=== PATIENT | male | born 1965 | race Caucasian/White ===

== ENCOUNTER 2016-12-04 18:11 | Inpatient (IN) | payer OTHER ==
[~2016-12-04] VITALS: Ht 177.8 cm; Wt 117.9 kg
[~2016-12-04 18:11] MED LIST: METO25TA PO
[2016-12-04 18:29] VITALS: BP 143/85
--- NOTE | 2016-12-04 18:29 | NUR ---
PT W/C ASSISTED TO BED 4 AT THIS TIME.
[2016-12-04] MEDS ORDERED: methylPREDNISolone SS 125 MG in WATER STERILE 2 ML IV ONE (18:30)
[2016-12-04] MEDS ORDERED: ALBUTEROL SULFATE/IPRATROPIU 3 ML SOL IH ONE (18:30)
--- NOTE | 2016-12-04 18:30 | NUR ---
51M BIB FRIEND C/O SHORTNESS OF BREATH X TODAY; BL LUNG SOUNDS DIMINISHED, LABORED BREATHING, TACHYPNEA NOTED ON MONITOR AT THIS TIME; PT STATES HAS PRODUCTIVE COUGH W/ YELLOW PHLEGM X 2 DAYS; HX: ASTHMA/COPD; PT STATES DOES NOT TAKE BREATHING TX AT HOME; PT STATES "LOST BALANCE" AND FELL ON RT ARM AT HOME; RT RADIAL PULSE PALPABLE, CAP REFILL < 3 SECS, NO LOSS OF SENSATION TO RT ARM AT THIS TIME; PT C/O ACHING PAIN TO RT ARM, RADIATES TO RT FINGERS, MILD SWELLING NOTED TO HAND AT THIS TIME; PT DENIES LOC AT THIS TIME; PT DENIES N/V/D AT THIS TIME; PT PLACED ON MONITOR, RESTING IN BED W/ HOB ELEVATED AND IN LOWEST POSITION; POSITIONED FOR COMFORT; ER MD MADE AWARE OF STATUS. WILL CONTINUE TO MONITOR.
--- NOTE | 2016-12-04 18:32 | NUR ---
Dr. Jackson evaluating patient at bedside.
--- NOTE | 2016-12-04 18:40 | NUR ---
RT at bedside
[2016-12-04 19:08] LABS: BASOPHILS # (AUTO) 0.3 K/uL (0.00-0.22); BASOPHILS % (AUTO) 2.1 % (0.0-2.0); EOSINOPHILS # (AUTO) 0.3 K/uL (0-0.4); EOSINOPHILS % (AUTO) 2.2 % (0.0-4.0); HEMOGLOBIN 13.5 g/dL (12.0-18.0); LYMPHOCYTES # (AUTO) 7.2 K/uL (2.0-11.5); LYMPHOCYTES % (AUTO) 49.9 % (20.5-51.1); MEAN CORPUSCULAR HEMOGLOBIN 27 pg (27-31); MEAN CORPUSCULAR HGB CONC 32 g/dL (33-37); MEAN CORPUSCULAR VOLUME 85 fL (80-94); MONOCYTES # (AUTO) 0.9 K/uL (0.8-1.0); NEUTROPHILS # (AUTO) 5.7 K/uL (1.8-7.7); NEUTROPHILS % (AUTO) 39.8 % (42.2-75.2); PLATELET COUNT (AUTO) 181 K/uL (140-450); RED BLOOD CELL COUNT(AUTO) 4.92 MIL/uL (4.20-6.10); RED CELL DISTRIBUTION WIDTH 14.4 % (11.6-13.7); WHITE BLOOD COUNT (AUTO) 14.4 K/uL (4.8-10.8)
--- NOTE | 2016-12-04 19:08 | NUR ---
REPORT GIVEN TO AUSTYN CARO.
--- NOTE | 2016-12-04 19:10 | NUR ---
REPORT RECEIVED FROM AUSTYN ESPITIA.
[2016-12-04 19:15] LABS: INR 1.1 (0.8-1.2); PROTHROMBIN TIME 10.4 secs (10.8-13.4)
[2016-12-04 19:17] LABS: BLOOD GAS HCO3 29.1 mmol/L; BLOOD GAS PCO2 50.4 mmHg (20-50); BLOOD GAS PO2 98.6 mmHg
[2016-12-04 19:17] LABS: ALBUMIN 3.6 g/dL (3.4-5.0); ANION GAP 7.7 (8-16); CALCIUM 8.4 mg/dL (8.5-10.1); CARBON DIOXIDE 32.3 mmol/L (21-32); TOTAL BILIRUBIN 0.4 mg/dL (0.0-1.0); TOTAL PROTEIN, SERUM 6.9 g/dL (6.4-8.2)
[2016-12-04 19:18] LABS: BLOOD GAS O2 SAT% 97.4 % (92.0-98.5)
--- NOTE | 2016-12-04 20:13 | NUR ---
Patient appears to be resting comfortably in bed. pt asleep
[2016-12-04] MEDS ORDERED: HYDROcodone/APAP 5/325 MG 1 TAB TAB PO PRN (20:30)
[2016-12-04] MEDS ORDERED: LORazepam 2 MG/ML VIAL IVP PRN (20:30)
[2016-12-04] MEDS ORDERED: ONDANSETRON 4 MG/2 ML VIAL IVP PRN (20:30)
[2016-12-04] MEDS ORDERED: MORPHINE SULFATE 2 MG/ML SYR IVP PRN (20:30)
[2016-12-04] MEDS ORDERED: ACETAMINOPHEN 325 MG TAB PO PRN (20:30)
[2016-12-04] MEDS ORDERED: NACL 0.9% 1,000 ML IV SCH (20:30)
--- NOTE | 2016-12-04 20:35 | NUR ---
Patient will be admitted to care of DR DELGADO. Admited to TELE. Will go to room 106 b. Belongings list completed. Report to hiram kessler.
--- NOTE | 2016-12-04 20:35 | NUR ---
Admitted from E.. with chief complaint of SHORTNESS OF BREATH. A 51 y/o. Male, Appropriate. ALERT AWAKE ORIENTED X4. INITIAL ASSESSMENT DONE. NO S/S OF RESPIRATORY DISTRESS OR SOB NOTED. ON BI-PAP MACHINE AND TOLERATED WELL. NO C/O PAIN OR ANY DISCOMFORT AT THIS TIME. SKIN IS INTACT CLEAN DRY AND WARM TO TOUCH. PLAN OF CARE REVIEWED TO PT AND VERBALIZED UNDERSTANDING. oriented to call light, bed, phone,television, bathroom, smoking policy, visiting hours, procedures, ID bracelet on. Belongings list checked. CALL LIGHT WITHIN REACH. WILL CONTINUE TO MONITOR.
--- NOTE | 2016-12-04 20:45 | NUR ---
SPOKE TO DR. GARZA AND CLARIFIED RE: THE RATE OF IV FLUID NS @ 80ML/HR AND THE FREQUENCY OF LOPRESSOR AND IT IS BID. NOTED AND CARRIED OUT. WILL CONTINUE TO MONITOR.
[2016-12-04] MEDS: AZITHROMYCIN 500 MG in DEXTROSE 5% 250 ML IV SCH (20:47)
[2016-12-04] MEDS ORDERED: AZITHROMYCIN 500 MG INJ VIAL IV ONE (20:50)
[2016-12-04] MEDS: METOPROLOL 25 MG TAB PO SCH (21:03)
[2016-12-04] MEDS ORDERED: ASPIRIN 81 MG TAB.CHEW PO STA (21:15)
[2016-12-04] MEDS ORDERED: NITROGLYCERIN 0.4 MG/HR PATCH TD STA (21:15)
[2016-12-04] MEDS ORDERED: ENOXAPARIN 40 MG/0.4 ML SYR SUBQ STA (21:15)
--- NOTE | 2016-12-04 23:20 | NUR ---
PT IS OFF FROM BI-PAP MACHINE BECAUSE HE IS REFUSING IT DESPITE EXPLAINING THE RISKS AND BENEFITS OF IT. PT STATES THAT IT IS BOTHERING HIM AND HE IS BREATHING WELL WITHOUT IT. RT BRENDA NOTIFIED AND PUT PT ON O2 @ 3L/MIN VIA NASAL CANULA AND TOLERATED WELL. O2SAT IS 97% AT THIS TIME. WILL CONTINUE TO MONITOR.
[2016-12-04] MEDS: methylPREDNISolone SS 125 MG/2 ML VIAL IVP SCH (23:51)
[2016-12-05] VITALS: BP 133/79
--- NOTE | 2016-12-05 01:00 | NUR ---
PT IS SLEEPING RIGHT NOW BUT EASILY AROUSABLE. NO S/S OF ANY DISCOMFORT AT THIS TIME. ALL NEEDS ARE ATTENDED. CALL LIGHT WITHIN REACH. WILL CONTINUE TO MONITOR.
[2016-12-05 03:09] LABS: CREATINE KINASE MB 2.4 ng/mL (0-3.6)
[2016-12-05 04:00] VITALS: BP 127/76
[2016-12-05] MEDS: methylPREDNISolone SS 125 MG/2 ML VIAL IVP SCH ×3 (05:26→18:24)
--- NOTE | 2016-12-05 05:45 | NUR ---
AM CARE RENDERED. BED LINEN CHANGED. INSTRUCTED PT TO REPOSITION. KEPT CLEAN AND DRY. CALL LIGHT WITHIN REACH. WILL CONTINUE TO MONITOR.
[2016-12-05 07:01] LABS: BASOPHILS # (AUTO) 0.2 K/uL (0.00-0.22); BASOPHILS % (AUTO) 1.8 % (0.0-2.0); EOSINOPHILS # (AUTO) 0.2 K/uL (0-0.4); EOSINOPHILS % (AUTO) 1.7 % (0.0-4.0); HEMATOCRIT 42.4 % (36-52); HEMOGLOBIN 13.9 g/dL (12.0-18.0); LYMPHOCYTES # (AUTO) 2.9 K/uL (2.0-11.5); LYMPHOCYTES % (AUTO) 25.1 % (20.5-51.1); MEAN CORPUSCULAR HEMOGLOBIN 28 pg (27-31); MEAN CORPUSCULAR HGB CONC 33 g/dL (33-37); MEAN CORPUSCULAR VOLUME 86 fL (80-94); MONOCYTES # (AUTO) 0.1 K/uL (0.8-1.0); MONOCYTES % (AUTO) 1.1 % (1.7-9.3); NEUTROPHILS # (AUTO) 8.3 K/uL (1.8-7.7); NEUTROPHILS % (AUTO) 70.3 % (42.2-75.2); PLATELET COUNT (AUTO) 179 K/uL (140-450); RED BLOOD CELL COUNT(AUTO) 4.94 MIL/uL (4.20-6.10); RED CELL DISTRIBUTION WIDTH 14.6 % (11.6-13.7); WHITE BLOOD COUNT (AUTO) 11.7 K/uL (4.8-10.8)
[2016-12-05 07:06] LABS: ANION GAP 8.3 (8-16); CALCIUM 8.1 mg/dL (8.5-10.1); CARBON DIOXIDE 30.1 mmol/L (21-32); CREATININE 0.7 mg/dL (0.6-1.3); POTASSIUM 4.4 mmol/L (3.5-5.1)
--- NOTE | 2016-12-05 07:12 | NUR ---
PT HAS NO S/S OF ANY DISCOMFORT. PLAN OF CARE ENDORSED TO NORMA ZAMAN AT BEDSIDE FOR CONTINUITY OF CARE.
--- NOTE | 2016-12-05 07:30 | NUR ---
PT AWAKE, ALERT AND ORIENTED. ON O2 NC 3L/MIN, O2 SAT 96%. NO S/S OF RESPIRATORY DISTRESS AT THIS TIME. ABDOMEN EXTENDED,SOFT. IV TO LEFT AC RUNNING 0.9% NS AT 80 ML/HR. SITE INTACT AND PATENT. SKIN INTACT, PT CAN MOVE ALL HER EXTREMITIES. ASSISTED PT TO USE URINAL, PT HAD 200 ML CLEAR YELLOW URINE. POC DISCUSSED WITH PT, PT VERBALIZED UNDERSTANDING. CALL LIGHT IN REACH, HOB ELEVATED AT 30 DEGREES.WILL CONTINUE TO MONITOR.
--- NOTE | 2016-12-05 07:47 | NUR ---
PT PLACED ON BIPAP AT THIS TIME DUE TO LABORED BREATHING. PT TOLERATING WELL AT THIS TIME. BIPAP SETTINGS 16/8, R 14, FIO2 35%. BIPAP ALARMS ON AND FUNCTIONING. WILL CONTINUE TO MONITOR.
--- NOTE | 2016-12-05 07:56 | NUR ---
PATIENT HAS BEEN SCREENED AND CATEGORIZED MODERATE NUTRITION RISK. PATIENT WILL BE SEEN WITHIN 3-5 DAYS OF ADMISSION. 12/07/16-12/09/[address]
[2016-12-05 08:00] VITALS: BP 124/69
[2016-12-05] MEDS ORDERED: MORPHINE SULFATE 2 MG/ML SYR IVP PRN (09:25)
[2016-12-05] MEDS ORDERED: HYDROcodone/APAP 10/325 MG 1 TAB TAB PO PRN (09:25)
[2016-12-05] MEDS ORDERED: guaiFENesin 20 MG/ML UDC PO PRN (09:25)
[2016-12-05] MEDS: METOPROLOL 25 MG TAB PO SCH ×2 (09:30→20:31)
[2016-12-05] MEDS: ASPIRIN 81 MG TAB.CHEW PO SCH (09:30)
[2016-12-05] MEDS: ENOXAPARIN 40 MG/0.4 ML SYR SUBQ SCH (09:31)
--- NOTE | 2016-12-05 09:44 | NUR ---
PT TAKEN OFF OF BIPAP FOR PO MEDS AND PT WANTS TO EAT. PT PLACED ON 3L NASAL CANNULA SPO2 95%. PT NOT SOB AND NOT IN RESPIRATORY DISTRESS. PT BECOMES TACHYPNEIC WHEN IN UNCOMFORTABLE POSITION OR WHEN MOVING AROUND IN BED. NURSE WAS BEDSIDE AND AWARE OF PT STATUS.
--- NOTE | 2016-12-05 10:00 | NUR ---
PT AWAKE, ALERT, AND ORIENTED. NO S/S OF RESPIRATORY DISTRESS NOTED.
[2016-12-05 10:55] LABS: CREATINE KINASE MB 1.8 ng/mL (0-3.6)
--- NOTE | 2016-12-05 11:09 | NUR ---
FAXED INITIAL REVIEW TO [facility] [phone] PHONE CHET [phone]
[2016-12-05] MEDS: ALBUTEROL 0.083% 2.5 MG/3 ML NEBU INH PRN ×2 (11:29→19:03)
[2016-12-05] MEDS: IPRATROPIUM 0.02% 0.5 MG/2.5 ML NEBU INH SCH ×2 (11:29→19:02)
[2016-12-05 12:00] VITALS: BP 139/97
--- NOTE | 2016-12-05 12:10 | NUR ---
PT FORGOT NPO AND ATE. DR. LAZO AWARE.
--- NOTE | 2016-12-05 14:45 | NUR ---
PT RESTING IN BED.NO S/S OF RESPIRATORY DISTRESS NOTED. DENIES PAIN OR DISCOMFORT AT THIS TIME. CALL LIGHT IN REACH.
[2016-12-05 16:00] VITALS: BP 130/69
--- NOTE | 2016-12-05 16:00 | NUR ---
RECEIVED REPORT FROM, SUNDAY RN. PT IS AAOX4, PT IS ON O2 3L VIA NC, PULSE OX 96%, IV TO LEFT AC 20G INFUSING WELL. REVIEWED PLAN OF CARE WITH PT PT VERBALIZED UNDERSTANDING. ALL NEEDS MET. CALL LIGHT WITHIN REACH. WILL CONTINUE TO MONITOR. Addendum: 12/05/16 at 1815 by Reena Lion RN PT SALINE LOCK, IV TO LEFT AC 20G PATENT AND INTACT.
--- NOTE | 2016-12-05 18:29 | NUR ---
DUE MEDICATIONS GIVEN. PT TOLERATED WELL . PT C/O OF PAIN RIGHT HAND, MEDICATED PER MD ORDERS. CALL LIGHT WITH REACH. WILL CONTINUE TO MONITOR.
--- NOTE | 2016-12-05 19:02 | NUR ---
AWAKE AND ALERT RESPONSIVE OBESE IN HFW POSITION ON SUPPLEMENTAL OXYGEN AT 3 LPM VIA NC SATURATION 95% RR 24 HR 94 PATIENT C/O SOB HHN THERAPY GIVEN AT THIS TIME TOLERATED WELL WITHOUT INCIDENT [facility] [employer]P[facility]ONICS V60 BIPAP AT BEDSIDE
[2016-12-05] MEDS: BUDESONIDE 0.5 MG/2 ML NEBU INH SCH (19:03)
--- NOTE | 2016-12-05 19:05 | NUR ---
RESPIRATORY THERAPIST KERA IN ROOM WITH THE PATIENT,PT IS CURRENTLY AWAKE ALERT O2SAT 94% PT DENIES PAIN,IV SITE TO LT AC PATENT.PATIENT ABLE TO MAKE NEEDS KNOWN. PATIENT IS CURRENTLY USING THE URINAL. PATIENT WILL CONTINUE TO BE OBSERVED. CALL LIGHT WITHIN REACH WILL CONTINUE TO MONITOR.FALL AND SAFETY MEASURES IMPLEMENTED.
--- NOTE | 2016-12-05 19:05 | NUR ---
ENDORSED PLAN OF CARE TO NIGHT NURSE, PT IN STABLE CONDITION, RT CURRENTLY IN ROOM.
[2016-12-05 20:00] VITALS: BP 121/79
--- NOTE | 2016-12-05 20:00 | NUR ---
Patient's Plan of Care was discussed and reviewed with REPOSSESSOR: CHUN.
[2016-12-05] MEDS: AZITHROMYCIN 500 MG in DEXTROSE 5% 250 ML IV SCH (20:24)
--- NOTE | 2016-12-05 20:24 | NUR ---
PT RECEIVED HIS ANTIBIOTIC BY AUSTYN VAIL.PT WAS JUST FINISHED TALKING TO HIS DAUGHTER SOFY OVER THE PHONE. O2SAT 94%.WILL CONTINUE TO MONITOR.CALL LIGHT WITHIN REACH.
--- NOTE | 2016-12-05 20:31 | NUR ---
PATIENT TOOK HIS ROUTINE NIGHT TIME MEDICATIONS.PATIENT DOING WELL.CALL LIGHT WITHIN REACH.
--- NOTE | 2016-12-05 22:40 | NUR ---
PATIENT STATES HE FEELS LIKE HAVING A BOWEL MOVEMENT AND WANTS TO WALK TO THE BATHROOM,I OFFERED BEDPAN PT REFUSED,THEN I OFFERED A BEDSIDE COMMODE PT AGREED AND I PROVIDED HIM WITH A BEDSIDE COMMODE AND ASSISTED THE PATIENT TO THE BEDSIDE COMMODE EARLIER PT STATES,"ITS VERY UNCOMFORTABLE AND ONLY VOIDED PT STATES,"NO I WILL TRY AGAIN LATER." PATIENT WAS ASSISTED BACK TO BED INSTEAD.O2SAT'S DURING THE TIME HE WAS USING THE BEDSIDE COMMODE WERE 92-94% AND PATIENT HAS HIS OXYGEN AT 3LITERS ALL THE TIME AND CONTINUES TO HAVE IT IN PLACE.CALL LIGHT WITHIN REACH.
--- NOTE | 2016-12-05 22:45 | NUR ---
RESPIRATORY THERAPIST KERA WAS INFORMED THAT WHEN I OBSERVED THE PATIENT SLEEPING HIS O2SAT DROPPED TO 79% I AROSE THE PATIENT AND HIS O2SAT WENT UP AGAIN TO 93%.I TOLD THE PATIENT THAT ITS IMPORTANT AND THAT HE NEEDS TO BE ON THE BIPAP MACHINE BECAUSE DURING HIS SLEEP HIS O2SAT DROPS, PT AGREED.RESPIRATORY THERAPIST KERA WAS INFORMED HE WILL COME AND PUT HIM ON THE BIPAP.WILL CONTINUE TO MONITOR.
--- NOTE | 2016-12-05 23:05 | NUR ---
PT COMPLAINS OF PAIN TO HIS IV SITE RT AC G#20 IT WAS REMOVED AND A NEW IV LINE WAS RESTARTED TO HIS LT HAND G#22 AT FIRST ATTEMPT WITH GOOD BLOOD RETURN.WILL CONTINUE TO MONITOR.
--- NOTE | 2016-12-05 23:15 | NUR ---
TOLERATING BIPAP TO MASK WELL WITHOUT INCIDENT PLUGGED INTO RED OUTLET CONTINUOS PULSE OXIMETRY AT BEDSIDE ON AND FUNCTIONING WELL LOW SATURATION ALARM SET AT 90%
--- NOTE | 2016-12-05 23:46 | NUR ---
PT UPSET REFUSES THE BIPAP PT STATES,"I FEEL LIKE I CAN'T BREATH AND I CANNOT SLEEP." PATIENT CONTINUES TO HAVE PULSE OXIMETER IN PLACE 02SAT READING IS 99-98%.PATIENT INSISTS THAT HE WANTS BIPAP OFF.I CALLED AND INFORMED RESP THERAPIST KERA.
--- NOTE | 2016-12-05 23:49 | NUR ---
AWAKE AND ALERT OBESE PATIENT REFUSING BIPAP TO MASK PLACED BACK ON SUPPLEMENTAL OXYGEN AT 3 LPM VIA SUNDAY MCCOLLUM/RN NOTIFIED
[2016-12-06 00:12] VITALS: BP 131/70
[2016-12-06] MEDS: methylPREDNISolone SS 125 MG/2 ML VIAL IVP SCH ×4 (00:37→20:40)
--- NOTE | 2016-12-06 00:59 | NUR ---
PATIENT IS CURRENTLY SLEEPING IN NO DISTRESS PATIENT CONTINUES TO BE MONITORED.CALL LIGHT WITHIN REACH.
[2016-12-06] MEDS: IPRATROPIUM 0.02% 0.5 MG/2.5 ML NEBU INH SCH ×4 (02:15→19:16)
--- NOTE | 2016-12-06 03:15 | NUR ---
PATIENT CALLED AND I WENT TO CHECK UP ON HIM PT IS RESTING IN BED AND HE HAD HIS OXYGEN OUT OF PLACE PT CONTINUES TO HAVE THE CONTINUES O2SAT MACHINE AT BEDSIDE AND HIS CURRENT READING 02SAT 91%.PT STATES HE URINATED ON THE FLOOR.I PLACED HIS OXYGEN NASAL CANNULA BACK IN PLACE AND O2SAT IS 94% AND I TOLD MT LIN TO CALL EVS TO MOP THE FLOOR.PT HAD HIS CALL LIGHT WITHIN REACH. I EXPLAINED TO THE PATIENT THAT HE NEEDS TO USE THE CALL LIGHT FOR ASSISTANCE AT ALL TIMES.PT VERBALIZES UNDERSTANDING.PATIENT STATES,"HE HAS PERIODS OF ANXIETY."WILL CONTINUE TO OBSERVE THE PATIENT.
[2016-12-06 04:00] VITALS: BP 123/82
--- NOTE | 2016-12-06 04:05 | NUR ---
PT RESTING COMFORTABLY IN BED WILL CONTINUE TO MONITOR.PT IN NO DISTRESS.
--- NOTE | 2016-12-06 06:31 | NUR ---
PATIENT RESTING IN BED O2SAT 97% CONTINUES TO HAVE OXYGEN AT 3L VIA NASAL CANNULA.PATIENT CONTINUES TO BE OBSERVED.CALL LIGHT WITHIN REACH WILL CONTINUE TO MONITOR.
[2016-12-06 06:39] LABS: AMPHETAMINE, URINE NEG. ng/ml (NEG <=1000); BARBITURATE, URINE NEG. ng/ml (NEG <=200); BENZODIAZEPINE, URINE NEG. ng/mL (NEG <=200); CANNABINOID, URINE NEG. ng/mL (NEG <=50); COCAINE, URINE NEG. ng/mL (NEG <=300); OPIATE, URINE NEG. ng/mL (NEG <=2000); PHENCYCLIDINE SCREEN,URINE NEG. ng/mL (NEG <=25)
--- NOTE | 2016-12-06 07:10 | NUR ---
RECEIVED REPORT FROM THE R[employer]ER [employer] NURSE AT BEDSIDE FOR CONTINUITY OF CARE. PT IS AWAKE. SIDE LYING ON HIS LT SIDE. HE DIDN'T EVEN LOOK UP. I INTRODUCED MYSELF AND TOLE HIM I WILL BE BACK TO ASSESS HIM. HE SAID FINE. STILL NO EYE CONTACT. BIPAP MACHINE AT BEDSIDE. PER R[employer] NURSE, PT REFUSED TO USE IT LAST NIGHT. HE HAS A NC 2L O2 RUNNING. NOTED TO IV ON THE L HAND 22G. WILL COME BACK TO FURTHER ASSESS PT.
--- NOTE | 2016-12-06 07:28 | NUR ---
PT STABLE REPORT ENDORSED TO AUSTYN MARSH AT BEDSIDE SHE WILL RESUME CARE.
--- NOTE | 2016-12-06 07:42 | NUR ---
PT EATING AT THIS TIME AND DOES NOT WANT BREATHING TX, WILL CHECK BACK AFTER DONE WITH BREAKFAST FOR TX. PT SITTING UP IN BED NO DISTRESS NOTED.
[2016-12-06 08:00] VITALS: BP 118/64
[2016-12-06] MEDS: BUDESONIDE 0.5 MG/2 ML NEBU INH SCH ×2 (08:17→19:16)
--- NOTE | 2016-12-06 08:30 | NUR ---
PT'S MOM CALLED TO GET F/U ON PT. GAVE HER INFORMATION AFTER ASKING PT IF IT WAS OK. PT VERBALIZED OK.
[2016-12-06] MEDS: METOPROLOL 25 MG TAB PO SCH ×2 (08:38→21:55)
[2016-12-06] MEDS: ASPIRIN 81 MG TAB.CHEW PO SCH (08:38)
[2016-12-06] MEDS: ENOXAPARIN 40 MG/0.4 ML SYR SUBQ SCH (08:38)
[2016-12-06] MEDS: ATORVASTATIN 20 MG TAB PO SCH (08:38)
--- NOTE | 2016-12-06 08:40 | NUR ---
ADMINISTERED MORNING MEDS. PT TOLERATED WELL. WILL CONTINUE TO MONITOR PT.
--- NOTE | 2016-12-06 09:00 | NUR ---
DR. DELGADO WAS HERE. ORDERED CT OF ABD/PEL WITH CONTRAST. GOT CONSENT FROM PT. WILL WAIT A FEW HOURS FOR THE CT D/T PT HAVING HAD BREAKFAST. WILL NEED A SIGNATURE FROM . WILL HAVE HERE PAGED.
[2016-12-06 09:06] LABS: HEMATOCRIT 41.2 % (36-52); HEMOGLOBIN 13.5 g/dL (12.0-18.0); MEAN CORPUSCULAR HEMOGLOBIN 28 pg (27-31); MEAN CORPUSCULAR HGB CONC 33 g/dL (33-37); MEAN CORPUSCULAR VOLUME 85 fL (80-94); PLATELET COUNT (AUTO) 194 K/uL (140-450); RED BLOOD CELL COUNT(AUTO) 4.88 MIL/uL (4.20-6.10); RED CELL DISTRIBUTION WIDTH 14.8 % (11.6-13.7)
[2016-12-06 09:21] LABS: ANION GAP 7.4 (8-16); CALCIUM 8.2 mg/dL (8.5-10.1); CARBON DIOXIDE 32.8 mmol/L (21-32); CREATININE 0.9 mg/dL (0.6-1.3); POTASSIUM 4.2 mmol/L (3.5-5.1)
[2016-12-06 09:26] LABS: BAND % (MANUAL) 0 % (0-8); BASOPHILS % (MANUAL) 0 % (0-2); EOSINOPHILS % (MANUAL) 0 % (0-4); LYMPHOCYTES % (MANUAL) 16 % (20-46); MONOCYTES % (MANUAL) 2 % (5-12); NEUTROPHILS % (MANUAL) 82 (43-65); PLATELET ESTIMATE ADEQUATE
--- NOTE | 2016-12-06 10:40 | NUR ---
MOTHER CALLED FROM [place]. UNABLE TO GET PATCHED THROUGH TO THE ROOM. I WILL SEE. THE RINGER WAS OFF. PT SPEAKING TO MOTHER. PT IS LESS SOB. PT SITTING UP IN HIGH FOWLERS. WILL CONTINUE TO MONITOR PT.
--- NOTE | 2016-12-06 12:00 | NUR ---
NEEDED TO USE THE BATHROOM. ASKED HIM TO USE THE COMMODE. I DIDN'T WANT HIM TO AMBULATE AND FALL. HE GETS REAL SOB. HE DID NOT HAVE A BM. HE IS BACK IN BED. WILL CONTINUE TO MONITOR PT.
--- NOTE | 2016-12-06 13:00 | NUR ---
PT IS IN HIGH ALBERT'S IN BED. FINISHED 100% OF LUNCH. PT IS RESTING AND WATCHING TV. ADMINISTERED HIS MEDS. PT TOLERATED WELL. NO COMPLAINTS AT THIS TIME. WILL CONTINUE TO MONITOR PT. ADVISED HIM R.T. WILL BE HERE SOON FOR HIS BREATHING TX.
--- NOTE | 2016-12-06 15:26 | NUR ---
PT RESTING COMFORTABLY. WATCHING TV. EXPLAINED TO THE PT THAT WE ARE WAITING FOR A SIGNATURE FROM MD FOR THE CT. ONCE SHE GETS HERE, WE WILL CALL RADIOLOGY TO TAKE HIM TO HAVE THE CT DONE. WE WILL HOLD HIS DINNER TRAY FOR WHEN HE RETURNS. PT VERBALIZED UNDERSTANDING. NO COMPLAINTS AT THIS TIME. WILL CONTINUE TO MONITOR PT.
[2016-12-06 15:54] VITALS: BP 131/86
--- NOTE | 2016-12-06 16:00 | NUR ---
RADIOLOGY WAS HERE AND TOOK PT FOR CT OF ABD/PELVIS W/O CONTRAST. Addendum: 12/06/16 at 1925 by Gabrielle Austin RN 1830 NOT 1630
--- NOTE | 2016-12-06 17:00 | NUR ---
PAGED DR. DELGADO AGAIN TO SEE IF SHE IS COMING TO SIGN THE CONSENT. SHE DID NOT KNOW SHE NEEDED TO SIGN. SHE IS NOT PLANNING ON COMING BY TO SIGN THE CONSENT SO CHANGE THE ORDER TO W/OUT CONTRAST. I CHANGED THE ORDER IN THE COMPUTER ON BEHALF OF DR. DELGADO. CALLED RADIOLOGY OF THE CHANGES. MATT, THE GENERAL FARMWORKER, WILL BE HERE SHORTLY TO TAKE PT TO HAVE CT DONE. NOTIFIED PT OF CHANGES. PT VERBALIZED UNDERSTANDING.
--- NOTE | 2016-12-06 19:00 | NUR ---
ENDORSED PT TO THE HEALTH ECONOMIST NURSE AT BEDSIDE FOR CONTINUITY OF CARE. PT IS RESTING, WITHOUT HIS NC ON. PUT ON THE NC O2 AT 3L. PUT HIM BACK ON THE O2 SAT MONITOR. PT IS IN STABLE CONDITION.
--- NOTE | 2016-12-06 19:05 | NUR ---
PT IS AWAKE ALERT ORIENTED HOB ELEVATED TO SITTING POSITION,DENIES ANY CHEST PAIN,GET SOB WITH ACTIVITY AND MOVEMENT,CONTINUES TO HAVE OXYGEN AT 3LITERS VIA NASAL CANNULA 02SAT IS 98% CONTINUES TO BE CONNECTED TO THE CONTINOUS PULSE OXIMETER.CALL LIGHT WITHIN REACH AT ALL TIMES PATIENT ABLE TO MAKE NEEDS KNOWN WILL CONTINUE TO MONITOR.PT STABLE WATCHING TV.
[2016-12-06] MEDS: ALBUTEROL 0.083% 2.5 MG/3 ML NEBU INH PRN (19:16)
--- NOTE | 2016-12-06 19:16 | NUR ---
PT RECEIVING HIS BREATHING TREATMENT AT THIS TIME BY RESPIRATORY THERAPIST
--- NOTE | 2016-12-06 19:35 | NUR ---
PT REFUSING TO USE BIPAP, EXPLAINED BENEFITS OF BIPAP TO PT. PT STATES HE WILL CALL IF HE WANTS IT ON, INFORMED PT'S RN, CHUN OF PT REFUSAL.
--- NOTE | 2016-12-06 19:53 | NUR ---
MD DELGADO CAME BACK AND IS AWARE OF PATIENT CURRENTLY CONDITION AND MADE ROUNDS.
--- NOTE | 2016-12-06 19:54 | NUR ---
PT STABLE WATCHING TV WAS GIVEN SOME SNACKS.
[2016-12-06] MEDS: AZITHROMYCIN 500 MG in DEXTROSE 5% 250 ML IV SCH (20:40)
--- NOTE | 2016-12-06 20:40 | NUR ---
PATIENT IS RECEIVING HIS ANTIBIOTIC GIVEN BY AUSTYN PAULSON.
--- NOTE | 2016-12-06 21:55 | NUR ---
PATIENT WATCHING TV TOOK HIS ROUTINE MEDS CONTINUES TO HAVE OXYGEN AT 3L VIA NASAL CANNULA AND 02SAT IS 96% WILL CONTINUE TO MONITOR.
--- NOTE | 2016-12-06 22:16 | NUR ---
Patient's Plan of Care was discussed and reviewed with BREAD AND PASTRY BAKER: CHUN GARCIA
--- NOTE | 2016-12-07 00:10 | NUR ---
PATIENT IS CURRENTLY RESTING IN BED NEEDS MET STABLE AT THIS TIME.CONTINUE TO BE MONITORED.
[2016-12-07 00:44] VITALS: BP 136/89
[2016-12-07] MEDS: ALBUTEROL 0.083% 2.5 MG/3 ML NEBU INH PRN ×4 (00:58→19:06)
[2016-12-07] MEDS: IPRATROPIUM 0.02% 0.5 MG/2.5 ML NEBU INH SCH ×4 (00:58→19:06)
--- NOTE | 2016-12-07 03:20 | NUR ---
PT IS SLEEPING IN BED,02SAT 94% PT REFUSED BIPAP TONIGHT PT STATES,"I WILL LET YOU KNOW IF I NEED IT."PT CONTINUES TO BE MONITORED.CALL LIGHT WITHIN REACH.
[2016-12-07] MEDS: methylPREDNISolone SS 125 MG/2 ML VIAL IVP SCH ×3 (04:32→20:25)
[2016-12-07 04:35] VITALS: BP 134/80
[2016-12-07 06:01] LABS: HEMATOCRIT 40.3 % (36-52); HEMOGLOBIN 13.4 g/dL (12.0-18.0); MEAN CORPUSCULAR HEMOGLOBIN 28 pg (27-31); MEAN CORPUSCULAR HGB CONC 33 g/dL (33-37); MEAN CORPUSCULAR VOLUME 85 fL (80-94); PLATELET COUNT (AUTO) 201 K/uL (140-450); RED BLOOD CELL COUNT(AUTO) 4.76 MIL/uL (4.20-6.10); RED CELL DISTRIBUTION WIDTH 14.5 % (11.6-13.7); WHITE BLOOD COUNT (AUTO) 20.3 K/uL (4.8-10.8)
[2016-12-07 06:13] LABS: CALCIUM 8.2 mg/dL (8.5-10.1); CREATININE 0.8 mg/dL (0.6-1.3)
--- NOTE | 2016-12-07 06:18 | NUR ---
PATIENT SLEEPING IN BED NO DISTRESS.PT'S MOTHER CALLED AND WANTS SON TO KNOW THAT SHE CALLED AND SHES PRAYING FOR HIM,I WILL LET PATIENT KNOW WHEN HE WAKES UP.
[2016-12-07 06:21] LABS: ANION GAP 6.4 (8-16); POTASSIUM 4.4 mmol/L (3.5-5.1)
[2016-12-07 06:49] LABS: NEUTROPHILS % (MANUAL) 75 (43-65)
[2016-12-07 06:50] LABS: LYMPHOCYTES % (MANUAL) 20 % (20-46); MONOCYTES % (MANUAL) 4 % (5-12)
--- NOTE | 2016-12-07 07:07 | NUR ---
RECEIVED REPORT FROM GAL MCCOLLUM. PT IS RESTING ON BED, AAO X4 WITH O2 3L NC. IV ON LEFT HAND 22G PATENT AND INTACT INFUSING FLUID WELL, INITIAL ASSESSMENT DONE, NO S/S OF RESPIRATORY DISTRESS OR DISCOMFORT NOTED, CALL LIGHT WITHIN REACH, WILL CONTINUE TO MONITOR.
--- NOTE | 2016-12-07 07:07 | NUR ---
PT AWAKE AND STABLE REPORT ENDORSED TO AUSTYN STRATTON AT BEDSIDE.
--- NOTE | 2016-12-07 07:08 | NUR ---
ENDORSED PT TO TIN RN FOR CONTINUITY OF CARE. PT IS STABLE AT THIS TIME.
--- NOTE | 2016-12-07 07:08 | NUR ---
PT ALERT AND ORIENTED X4, WITH O2 AT 3L/MIN VIA NC. NO SIGNS OF ACUTE DISTRESS. SKIN IS WARM AND DRY. NO C/O ANY BOWEL OR BLADDER DISCOMFORT. DENIES OF ANY PAIN OR DISCOMFORT. ALL NEEDS ATTENDED, SAFETY PRECAUTIONS MAINTAINED. CALL LIGHT WITHIN REACH.
[2016-12-07] MEDS: BUDESONIDE 0.5 MG/2 ML NEBU INH SCH ×2 (07:10→19:06)
[2016-12-07 08:00] VITALS: BP 148/87
[2016-12-07] MEDS: ATORVASTATIN 20 MG TAB PO SCH (08:25)
[2016-12-07] MEDS: METOPROLOL 25 MG TAB PO SCH ×2 (08:26→20:07)
[2016-12-07] MEDS: ENOXAPARIN 40 MG/0.4 ML SYR SUBQ SCH (08:26)
[2016-12-07] MEDS: ASPIRIN 81 MG TAB.CHEW PO SCH (08:26)
--- NOTE | 2016-12-07 09:33 | NUR ---
RECEIVED NEW ORDER FROM DR. DELGADO. OBTAIN LAB ABG. NOTED AND CARRIED OUT.
[2016-12-07 09:44] LABS: BLOOD GAS HCO3 28.7 mmol/L; BLOOD GAS O2 SAT% 93.3 % (92.0-98.5); BLOOD GAS PCO2 48.1 mmHg (20-50); BLOOD GAS PH 7.394 (7.35-7.45); BLOOD GAS PO2 65.9 mmHg
--- NOTE | 2016-12-07 11:41 | NUR ---
NEW LAB ORDERS RECEIVED FROM DR. DELGADO. NOTED AND CARRIED OUT.
[2016-12-07 16:00] VITALS: BP 151/85
--- NOTE | 2016-12-07 18:53 | NUR ---
PT ALERT AND RESPONSIVE, NO SIGNS OF ACUTE DISTRESS ENDORSED TO ONCOMING HUMAN SERVICE SPECIALIST NURSE FOR CONTINUITY OF CARE.
--- NOTE | 2016-12-07 19:30 | NUR ---
PATIENT IS CURRENTLY AWAKE ALERT SITTING UP IN BED CONTINUE TO HAVE OXYGEN VIA NASAL CANNULA AT 3LITERS AND NO SOB AT THIS TIME.PATIENT HAS FAMILY AT BEDSIDE AND HE IS CURRENTLY TALKING AND SMILING HIS 02SAT IS 95%.PATIENT DENIES ANY CHEST PAIN OR PAIN.CALL LIGHT WITHIN REACH WILL CONTINUE TO MONITOR.
[2016-12-07 20:00] VITALS: BP 140/65
--- NOTE | 2016-12-07 20:07 | NUR ---
EDUCATION GIVEN TO THE PATIENT ABOUT HIS ROUTINE NIGHT MEDS AND PATIENT TOOK HIS MEDICATIONS.
[2016-12-07] MEDS: AZITHROMYCIN 500 MG in DEXTROSE 5% 250 ML IV SCH (20:25)
--- NOTE | 2016-12-07 20:25 | NUR ---
PT RECEIVED HIS ZITHROMAX IV ANTIBIOTIC AND SOLUMEDROL IV BY AUSTYN PAULSON ORDERED.PT REQUESTING HS SNACK,PT PROVIDED WITH HS SNACKS.PATIENT SITTING IN CHAIR WATCHING TV.CALL LIGHT WITHIN REACH WILL CONTINUE TO OBSERVE.
--- NOTE | 2016-12-07 22:06 | NUR ---
Patient's Plan of Care was discussed and reviewed with WAITER/WAITRESS CABIN CLASS: CHUN GARCIA
--- NOTE | 2016-12-07 22:15 | NUR ---
PATIENT RESTING COMFORTABLY IN BED WATCHING TV,NEEDS MET,PT REQUESTING FOR HS SNACK GIVEN TO THE PATIENT WILL CONTINUE TO MONITOR CALL LIGHT WITHIN REACH.
[2016-12-08 00:10] VITALS: BP 137/82
--- NOTE | 2016-12-08 00:10 | NUR ---
PATIENT WAS USING URINAL SITTING AT THE EDGE OF THE BED BUT MISSED THE URINAL AND URINATED ALL OVER THE FLOOR.PT ASSISTED BACK TO BED CONTINUE TO WEAR THE OXYGEN AT 3L NASAL CANNULA.DESTINEY NEVES CAME AND CLEANED THE SPILL ON THE FLOOR AND ATTENDED TO PATIENTS NEEDS.PT IS ABLE TO CALL FOR ASSISTANCE AND VERBALIZES UNDERSTANDING TO CALL FOR HELP.PT REFUSED BIPAP TONIGHT I EXPLAINED TO THE PATIENT THAT IF HE CHANGES HIS MIND TO LET ME KNOW.PT VERBALIZES UNDERSTANDING.CALL LIGHT WITHIN REACH WILL CONTINUE TO MONITOR.
[2016-12-08] MEDS: IPRATROPIUM 0.02% 0.5 MG/2.5 ML NEBU INH SCH ×4 (00:56→18:48)
[2016-12-08] MEDS: ALBUTEROL 0.083% 2.5 MG/3 ML NEBU INH PRN ×3 (00:56→18:48)
--- NOTE | 2016-12-08 03:25 | NUR ---
PATIENT ASSISTED BY DESTINEY NEVES AND MYSELF TO USE THE URINAL AND THEN BACK IN BED. PATIENT CONTINUE TO BE EDUCATED TO CONTINUE TO USE THE CALL LIGHT WHEN HE NEEDS HELP OR ANY ASSISTANCE.PT VERBALIZES UNDERSTANDING.WILL CONTINUE TO MONITOR.
[2016-12-08] MEDS: methylPREDNISolone SS 125 MG/2 ML VIAL IVP SCH (04:10)
[2016-12-08 05:47] LABS: BASOPHILS # (AUTO) 0.4 K/uL (0.00-0.22); BASOPHILS % (AUTO) 2.3 % (0.0-2.0); EOSINOPHILS # (AUTO) 0.2 K/uL (0-0.4); EOSINOPHILS % (AUTO) 1.2 % (0.0-4.0); HEMATOCRIT 42.3 % (36-52); HEMOGLOBIN 13.8 g/dL (12.0-18.0); LYMPHOCYTES # (AUTO) 3.9 K/uL (2.0-11.5); LYMPHOCYTES % (AUTO) 21.8 % (20.5-51.1); MEAN CORPUSCULAR HEMOGLOBIN 28 pg (27-31); MEAN CORPUSCULAR HGB CONC 33 g/dL (33-37); MEAN CORPUSCULAR VOLUME 86 fL (80-94); MONOCYTES # (AUTO) 0.6 K/uL (0.8-1.0); MONOCYTES % (AUTO) 3.5 % (1.7-9.3); NEUTROPHILS # (AUTO) 12.9 K/uL (1.8-7.7); NEUTROPHILS % (AUTO) 71.2 % (42.2-75.2); PLATELET COUNT (AUTO) 192 K/uL (140-450); RED BLOOD CELL COUNT(AUTO) 4.93 MIL/uL (4.20-6.10); RED CELL DISTRIBUTION WIDTH 14.2 % (11.6-13.7)
[2016-12-08 06:13] LABS: ANION GAP 8.5 (8-16); CALCIUM 8.2 mg/dL (8.5-10.1); CARBON DIOXIDE 34.9 mmol/L (21-32); CREATININE 0.8 mg/dL (0.6-1.3); POTASSIUM 4.4 mmol/L (3.5-5.1)
--- NOTE | 2016-12-08 07:15 | NUR ---
RECEIVED REPORT FROM THE AML ANALYST NURSE AT BEDSIDE FOR CONTINUITY OF CARE. PT IS SLEEPING ON L SIDELINE. NOTED THE NC 3L O2. BREATHING IS BETTER. STILL GRUNTING. O2 SAT IS AT 97-99%. NOTED THE IV ON L HAND 22G SL. PT HAS A URINAL AT BEDSIDE. 300ML YELLOW URINE. WILL BE BACK TO FURTHER ASSESS PT.
--- NOTE | 2016-12-08 07:40 | NUR ---
UPDATED BOARD. WOKE UP PT TO DO HIS V/S. V/S WITHIN NORMAL. SLIGHTLY ELEVATED BP 149/91. HE HAS BP MEDS. WILL ADMINISTER THEM LATER. PT IS AAOX4. HE WANTED TO URINATE SO I ASSISTED HIM WITH HIS URINAL. ABOUT 100ML OF CLEAR, YELLOW URINE. PT LBM WAS YESTERDAY. NO COMPLAINTS OF PAIN. NO SOB. ALL SAFETY MEASURES IN PLACE. WILL CONTINUE TO MONITOR PT.
[2016-12-08 08:00] VITALS: BP 149/91
[2016-12-08] MEDS: BUDESONIDE 0.5 MG/2 ML NEBU INH SCH ×2 (08:10→18:48)
--- NOTE | 2016-12-08 08:21 | NUR ---
PT PLACED ON BIPAP FOR SOB. BIPAP SETTINGS 16/8, R 14, FIO2 35%. PT IS WORK OF BREATHING HAS DECREASED ON BIPAP. BIPAP ALARMS ARE ON AND FUNCTIONING. AWARE OF PT STATUS. BIPAP IS PLUGGED INTO RED OUTLET. WILL CONTINUE TO MONITOR.
[2016-12-08] MEDS ORDERED: PRED10TA5 PO (08:47)
[2016-12-08] MEDS ORDERED: PUL.5N INH (08:47)
[2016-12-08] MEDS ORDERED: DOXY100C9 PO (08:47)
[2016-12-08] MEDS ORDERED: ASPI81CT27 PO (08:47)
[2016-12-08] MEDS ORDERED: IPRA3AMP IH (08:47)
[2016-12-08] MEDS ORDERED: LOV40I SUBQ (08:47)
[2016-12-08] MEDS ORDERED: ATI.5 PO (08:47)
[2016-12-08] MEDS ORDERED: LORazepam 0.5 MG TAB PO SCH (09:00)
--- NOTE | 2016-12-08 09:00 | NUR ---
P.T. WAS HERE TO GET HIM UP AND GET EVALUATED. REMOVED BIPAP. PUT HIM ON A NC 3L. GOT HIM UP AND WALKING. STEADY ON HIS FEET. I ASKED THE P.T. TO REMOVED THE O2 AND SEE IF HE DESATS. HE DESATURATED DOWN TO 83% AND ONCE HE SAT DOWN AND ADMINISTERED THE NC. HE RECOVERED VERY QUICKLY WITHIN 10-15 SECONDS. ADMINISTERED MEDS. TOLERATED WELL. THIRD RIGGER IS DOING HIS MORNING ADLS. WILL CONTINUE TO MONITOR PT.
[2016-12-08] MEDS: METOPROLOL 25 MG TAB PO SCH (09:04)
[2016-12-08] MEDS: ATORVASTATIN 20 MG TAB PO SCH (09:05)
[2016-12-08] MEDS: ASPIRIN 81 MG TAB.CHEW PO SCH (09:05)
[2016-12-08] MEDS: ENOXAPARIN 40 MG/0.4 ML SYR SUBQ SCH (09:06)
--- NOTE | 2016-12-08 09:35 | NUR ---
FOUND PT OFF OF BIPAP. PT STATED PHYSICAL THERAPY TOOK HIM OFF. PT IS ON 3L NASAL CANNULA. SPO2 93%. PT STATES SLIGHT SOB BUT DOES NOT WISH TO WEAR BIPAP AT THIS TIME. EXPLAINED BENEFITS OF BIPAP TO PT. PT REMAINS ON 3L NC. WILL CONTINUE TO MONITOR.
--- NOTE | 2016-12-08 11:00 | NUR ---
PT IS RESTING IN BED. NO SIGNS OF DISTRESS. NO COMPLAINTS. WILL CONTINUE TO MONITOR PT.
--- NOTE | 2016-12-08 12:39 | NUR ---
PT IS RESTING IN BED, WATCHING TV. NO SIGNS OF DISTRESS. NO COMPLAINTS AT THIS TIME. ATE 70% OF HIS LUNCH. WILL CONTINUE TO MONITOR PT.
--- NOTE | 2016-12-08 12:43 | NUR ---
FAXED CONCURRENT REVIEW TO [facility] [phone] PHONE FEBRUARY [phone]
[2016-12-08] MEDS ORDERED: methylPREDNISolone SS 125 MG/2 ML VIAL IVP SCH (13:00)
--- NOTE | 2016-12-08 13:23 | NUR ---
PT IS SLEEPING SOUNDLY. NO SIGNS OF DISTRESS. WILL CONTINUE TO MONITOR PT.
--- NOTE | 2016-12-08 13:35 | NUR ---
SS NOTE: PER YEISON FROM [facility] ([phone]), PT CAN GO TO ROOM 215B ANYTIME UNDER DR. Rahul HORTON. ORDER FOR BI-PAP SENT TO [facility], RECEIVED FAX CONFIRMATION Addendum: 12/08/16 at 1356 by Juany Zabala SS I SPOKE WITH PT BEDSIDE AND MADE HIM AWARE OF THE ABOVE INFORMATION. HE STATED THAT HE IS IN AGREEMENT WITH GOING TO [facility] UPON DISCHARGE.
--- NOTE | 2016-12-08 13:52 | NUR ---
SPOKE WITH JASON FROM [facility] AUTH FOR [facility] IS [id number] AUTH FOR TRANSPORT IS [id number]. WAITING AUTH FOR BIPAP.
--- NOTE | 2016-12-08 15:13 | NUR ---
[facility] FOR [employer] FOR BIPAP IS [id number]
[2016-12-08 16:00] VITALS: BP 133/75
--- NOTE | 2016-12-08 16:01 | NUR ---
SS NOTE: PER LOTTIE FROM [facility] ([phone]), THE ETA FOR PT'S BI-PAP DELIVERY TO [facility] IS BETWEEN 1700 AND 1900. AYUSH ALEXANDRA.
--- NOTE | 2016-12-08 16:08 | NUR ---
PT SITTING IN A CHAIR, DOZING OFF. INSTRUCTED PT THAT HE WILL BE TRANSFERRED TODAY TO [facility] BED 215B. PT WILL BE FOLLOWED BY DR. Rahul HORTON. BIPAP WILL BE THERE WHEN HE ARRIVES. WILL CALL OVER TO [facility] TO GIVE REPORT. ANSWERED ALL QUESTIONS. WILL CONTINUE TO MONITOR PT.
--- NOTE | 2016-12-08 16:19 | NUR ---
CALLED [facility] AND SET UP WC TRANSPORT WITH OXYGEN FOR 7:30P.Chandni REAL RN CHARGE NURSE AWARE.
--- NOTE | 2016-12-08 16:30 | NUR ---
CALLED [facility] AT [phone]. SPOKE TO THOMAS ZAMAN. GAVE FULL REPORT. PT TO GO TO ROOM 215B. ANSWERED ALL QUESTIONS. D/C PAPERWORK FINISHED. ALL PRINTED. [facility] TO BE HERE TO LEGAL OPERATIONS MANAGER PT AT 1930. WILL HAVE HIM READY TO GO BEFORE SHIFT CHANGE.
--- NOTE | 2016-12-08 18:15 | NUR ---
GAVE D/C INSTRUCTIONS TO PT. ANSWERED ALL QUESTIONS. PT SIGNED ALL D/C PAPERWORK. I D/C'D IV, CANNULA INTACT. NO BLEEDING NOTED. PT IS SITTING IN A CHAIR NEXT TO THE BED. O2 SATURATION IN THE LOW 80'S . CALLED RT TO COME AND PUT HIM BACK ON BIPAP.
--- NOTE | 2016-12-08 19:10 | NUR ---
ENDORSED PT TO THE [employer]TE[employer] FABRICATOR NURSE AT BEDSIDE FOR CONTINUITY OF CARE. PT IS READY TO GO. PT IS IN STABLE CONDITION.
--- NOTE | 2016-12-08 19:30 | NUR ---
RECEIVED REPORT FROM CIRO ZAMAN AT BEDSIDE. PT IS ALERT AWAKE ORIENTED X4. INITIAL ASSESSMENT DONE. NO S/S OF RESPIRATORY DISTRESS OR SOB NOTED. ON O2 @ 3L/MIN VIA NASAL CANULA. NO C/O PAIN OR ANY DISCOMFORT AT THIS TIME. PT IS READY TO BE DISCHARGE AND WILL BE TRANSFERRED TO [facility]. JUST WAITING FOR [facility] TO PICK HIM UP. DISCHARGE INSTRUCTION GIVEN AND VERBALIZED UNDERSTANDING. WILL CONTINUE TO MONITOR.
--- NOTE | 2016-12-08 19:38 | NUR ---
[facility] CAME TO PICK-UP PT TO TRANSFER TO [facility]. DISCHARGE INSTRUCTION GIVEN AND VERBALIZED UNDERSTANDING. PT IS STABLE DURING THE DISCHARGE. THEY LEFT THE UNIT AT 1938.
== END 2016-12-08 19:40 | DRG 133 ==
LOC: MED 18:11 → MTU 20:21
PROVIDERS: ADMIT Hospitalist; ATTEND Hospitalist
PROC: 5A09357 Assistance with Respiratory Ventilation, Less than 24 Consecutive Hours, Continuous Positive Airway Pressure (ICD-10-PCS; principal; 2016-12-04)
DX: J96.00 Acute respiratory failure, unspecified whether with hypoxia or hypercapnia (principal); I11.0 Hypertensive heart disease with heart failure; J44.1 Chronic obstructive pulmonary disease with (acute) exacerbation; I50.32 Chronic diastolic (congestive) heart failure; J45.901 Unspecified asthma with (acute) exacerbation; I25.110 Atherosclerotic heart disease of native coronary artery with unstable angina pectoris; D72.829 Elevated white blood cell count, unspecified; E11.9 Type 2 diabetes mellitus without complications; G47.33 Obstructive sleep apnea (adult) (pediatric); B19.20 Unspecified viral hepatitis C without hepatic coma; R74.8 Abnormal levels of other serum enzymes; T38.0X5A Adverse effect of glucocorticoids and synthetic analogues, initial encounter; F10.21 Alcohol dependence, in remission; E66.9 Obesity, unspecified; Z87.891 Personal history of nicotine dependence; Z87.898 Personal history of other specified conditions; Z99.89 Dependence on other enabling machines and devices; Z68.37 Body mass index [BMI] 37.0-37.9, adult; Y92.89 Other specified places as the place of occurrence of the external cause
CPT/HCPCS: 36415; 36600; 71020; 76705; 80048; 80053; 80305; 82550; 82553; 82803; 83735; 83880; 84484; 85025; 85379; 85610; 85730; 87081; 93005; 94640; 94660; 96374; 99291; 99292; J0456; J1650; J2060; J2930; J7030; J7060; J7613; J7620; J7626; J7644; Q0092

== ENCOUNTER 2016-12-20 11:33 | Inpatient (IN) | payer OTHER ==
[~2016-12-20] VITALS: Ht 175.3 cm; Wt 129.7 kg
[~2016-12-20 11:33] MED LIST changes: +ASPIRIN ADULT L81 M1 PO; +ATIVAN0.5 M1 PO; +IPRATROPIUM BROM3 M1 IH; +LOPRESSOR25 MG PO; +LOVENOX40 MG/0.1 SUBQ; -METO25TA PO; +PREDNISONE10 MG PO; +PULMICORT0.5 MG/2 M INH; +VIBRAMYCIN100 MG PO
--- NOTE | 2016-12-20 11:33 | NUR ---
Patient BIBA BLS, transferred to bed 3. RN evaluating patient at bedside.
--- NOTE | 2016-12-20 11:34 | NUR ---
Dr. Edwards evaluating patient at bedside.
[2016-12-20 11:36] VITALS: BP 172/109
--- NOTE | 2016-12-20 11:37 | NUR ---
51M BIBA FROM [place] C/O COPD EXACERBATION X TODAY; BL RHALES HEARD AT THIS TIME; PT C/O COUGH W/ YELLOW PHLEGM X 3 WEEKS; PER [facility], PT HAS PNA, STARTED 2ND CYCLE OF ANTIBIOTICS LAST NIGHT AT 1900 YESTERDAY; PT C/O RT FLANK PAIN, SHARP, NON-RADIATING, 10/10 X 3 WEEKS; PT STATES HAD 2 EPISODES OF VOMITING TODAY, BUT DENIES DIARRHEA AT THIS TIME; ABDOMEN ROUND, FIRM, NON-TENDER, ACTIVE BOWEL SOUNDS X 4 QUADRANTS; PT NOTED W/ SMALL RED VAZQUEZ THROUGHOUT BODY; STATES "IT JUST CAME WHEN I GOT SICK"; PT NOTED W/ 2 BRUISES TO BL LOWER ABDOMEN; STATES " IT'S FROM THE SHOTS I WAS GIVEN"; PT DENIES PAIN TO SITES; HX: ANXIETY, HTN, CHF, HEP C. PT STATES STILL SMOKES; PT PLACED ON MONITOR, RESTING IN BED W/ HOB ELEVATED AND IN LOWEST POSITION; POSITIONED FOR COMFORT; ER MD MADE AWARE OF STATUS. WILL CONTINUE TO MONITOR.
[2016-12-20] MEDS ORDERED: NACL 0.9% 1,000 ML IV SCH (11:39)
[2016-12-20] MEDS ORDERED: methylPREDNISolone SS 125 MG/2 ML VIAL IVP ONE (11:40)
[2016-12-20] MEDS ORDERED: ALBUTEROL 0.083% 2.5 MG/3 ML NEBU INH ONE (11:40)
[2016-12-20] MEDS ORDERED: IPRATROPIUM 0.02% 0.5 MG/2.5 ML NEBU INH ONE (11:40)
[2016-12-20] MEDS ORDERED: MAGNESIUM SULFATE 50% 1,000 MG in NACL 0.9% 50 ML IV ONE (11:40)
--- NOTE | 2016-12-20 11:42 | NUR ---
Respiratory therapist at bedside for ABG and administration of breathing treatment.
--- NOTE | 2016-12-20 11:44 | NUR ---
XRAY AT BEDSIDE.
[2016-12-20] MEDS ORDERED: LIPITOR40 MG PO (11:54)
[2016-12-20] MEDS ORDERED: NORCO 10-325 T1 EACH PO (11:54)
[2016-12-20] MEDS ORDERED: LEVAQUIN750 MG IV (11:54)
[2016-12-20] MEDS ORDERED: MILK OF MA400 MG/5 M PO (11:54)
[2016-12-20] MEDS ORDERED: ZOFRAN4 M1 PO (11:54)
[2016-12-20] MEDS ORDERED: MUCINEX600 M1 PO (11:54)
[2016-12-20] MEDS ORDERED: IPRATROPIUM BROM3 ML IH (11:54)
[2016-12-20] MEDS ORDERED: TYLENOL325 M2 PO (11:54)
[2016-12-20] MEDS ORDERED: FLEET ENEMA 13135 ML RC (11:54)
[2016-12-20] MEDS ORDERED: DULCOLAX10 M2 RC (11:54)
[2016-12-20] MEDS ORDERED: PREDNISONE10 MG PO (11:54)
[2016-12-20] MEDS ORDERED: MELATONIN5 M3 PO (11:54)
--- NOTE | 2016-12-20 12:00 | NUR ---
PT APPEARS TO BE ANXIOUS IN BED; FIDGETING, VSS AT THIS TIME; ABLE TO FOLLOW COMMANDS; COOPERATIVE; WILL CONTINUE TO MONITOR.
[2016-12-20] MEDS ORDERED: MAGNESIUM SULFATE 50% 1000 MG/2 ML VIAL IV ONE (12:05)
--- NOTE | 2016-12-20 14:16 | NUR ---
ATTEMPTED TO GET URINE FROM PT; WHEN GIVEN URINAL, PT PEED ON FLOOR; ASKED PT IF HE COULD BE STRAIGHT CATHED FOR URINE; PT REFUSED STRAIGHT CATH; ER MD DR. LANCASTER NOTIFIED; WILL CONTINUE TO MONITOR PT.
--- NOTE | 2016-12-20 14:27 | NUR ---
REPORT GIVEN TO AUSTYN MILLER.
--- NOTE | 2016-12-20 14:30 | NUR ---
RECEIVED REPORT FROM ER NURSE, PT WILL BE BROUGHT TO UNIT IN HALF HOUR.
[2016-12-20] MEDS ORDERED: HYDROcodone/APAP 10/325 MG 1 TAB TAB PO PRN (14:40)
[2016-12-20] MEDS ORDERED: ASPIRIN 81 MG TAB.CHEW PO SCH (14:40)
[2016-12-20] MEDS ORDERED: ALBUTEROL SULFATE/IPRATROPIU 3 ML SOL IH SCH (14:40)
[2016-12-20] MEDS ORDERED: BISACODYL 10 MG SUPP RC PRN (14:40)
[2016-12-20] MEDS ORDERED: ACETAMINOPHEN 325 MG TAB PO PRN ×2 (14:40→14:45)
[2016-12-20] MEDS ORDERED: MAGNESIUM HYDROXIDE 2400 MG/30 ML UDC PO PRN (14:40)
[2016-12-20] MEDS ORDERED: ENOXAPARIN 40 MG/0.4 ML SYR SUBQ SCH (14:40)
--- NOTE | 2016-12-20 14:42 | NUR ---
Patient will be admitted to care of . Admited to TELEMETRY. Will go to room 120B. Belongings list completed. Report to AUSTYN MILLER.
[2016-12-20] MEDS ORDERED: LORazepam 2 MG/ML VIAL IVP PRN (14:45)
[2016-12-20] MEDS ORDERED: HYDROcodone/APAP 5/325 MG 1 TAB TAB PO PRN (14:45)
[2016-12-20] MEDS ORDERED: ONDANSETRON 4 MG/2 ML VIAL IVP PRN (14:45)
[2016-12-20] MEDS ORDERED: MORPHINE SULFATE 2 MG/ML SYR IVP PRN (14:45)
--- NOTE | 2016-12-20 14:55 | NUR ---
RECEIVED PT ON UNIT VIA GURNEY, PT ABLE TO AMBULATE TO BED, PT IS A/OX2-3, PT A LITTLE ANXIOUS/AGITATED UPON ARRIVAL, NEEDS REENFORCEMENT, IV IS ON THE LT AC, PATENT, INTACT, FLUSHING WELL, PT HAS BRUISING ON HIS LEFT UPPER ARM AND LOWER ABDOMEN, HAS SKIN RASH THROUGHOUT HIS BACK, PT IS ON 02 2L NC, NO S/S OF RESPIRATORY DISTRESS OR DISCOMFORT NOTED, SAFETY/FALL PRECAUTIONS IN PLACE, ORIENTED PT TO ROOM, DISCUSSED PLAN OF CARE WITH PT, PT UNABLE TO COMPREHEND, CALL LIGHT IS WITHIN REACH, WILL CONTINUE TO MONITOR.
--- NOTE | 2016-12-20 14:58 | NUR ---
Note sidney in EDM - 12/20/16 at 1611 by MEDSS PT BLOOD SUGAR [id number]; INEZ LANCASTER NOTIFIED; PER INEZ LANCASTER, OK TO TRANSFER PT TO ICU AT THIS TIME; CALLED AUSTYN MARIE AT ICU; INFORMED PT TO BE TAKEN TO ICU.
--- NOTE | 2016-12-20 15:45 | NUR ---
DR. HERNANDEZ IN THE ROOM WITH THE PT, PT IS A/OX1, PT PULLED OUT HIS IV FROM HIS LT AC, CATHETER TIP IS INTACT, PRESSURE APPLIED TO IV SITE.
--- NOTE | 2016-12-20 16:46 | NUR ---
NOTIFIED DR HERNANDEZ THAT AN ABG WAS OBTAINED IN ER EARLIER, DR HERNANDEZ THEN SAID TO DISREGARD THE DUPLICATE ORDER.
--- NOTE | 2016-12-20 18:38 | NUR ---
PT SLEEPING IN BED, NO S/S OF RESPIRATORY DISTRESS OR DISCOMFORT NOTED, CALL LIGHT WITHIN REACH, WILL CONTINUE TO MONITOR.
--- NOTE | 2016-12-20 19:15 | NUR ---
ENDORSED PT TO AUSTYN NI. FOR CONTINUITY OF CARE, RT IS AT BEDSIDE, PT STABLE AT THIS TIME.
[2016-12-20] MEDS: ALBUTEROL SULFATE/IPRATROPIU 3 ML SOL IH SCH (19:30)
[2016-12-20] MEDS: BUDESONIDE 0.5 MG/2 ML NEBU INH SCH (19:31)
--- NOTE | 2016-12-20 19:35 | NUR ---
RECEIVED FROM AM RN IN BED SLEEPING. PT. DX. COPD EXACERBATION, ACS AND INCREASED TROPONIN. PT. FROM SNF AND GETS AGITATED WHEN TOUCHED. PT. PULLED OUT IVF LINE WITH PM NURSE. REFUSED TO BE INSERTED A NEW LINE. WILL TRY THIS SHIFT. AFEBRILE. VITAL SIGNS 1135/77 AND NO [address] WITH 02 SAT OF 93 %. BED ALARM ON FOR SAFETY PRECAUTIONS. CALL LIGHT WITH IN BEDSIDE FOR EASY REACH. TELEMETRY MONITORING.
[2016-12-20 20:00] VITALS: BP 135/77
[2016-12-20] MEDS: LORazepam 0.5 MG TAB PO SCH (21:44)
[2016-12-20] MEDS: methylPREDNISolone SS 125 MG/2 ML VIAL IVP SCH (21:45)
--- NOTE | 2016-12-20 23:27 | NUR ---
SLEEPING . NO RESTLESSNESS NOTED. ON TELEMETRY MONITORING. NEW IVF LINE INSERTED TO LEFT HAND #22. GOOD BLOOD RETURN. COVERED WITH KERLIX GAUGE TO AVOID PT. ACCIDENTALLY PULLING ON IT. BED ALARM ON.
--- NOTE | 2016-12-21 00:29 | NUR ---
PT. ASSISTED TO RESTROOM INSIDE ROOM TO URINATE. BED ALARM ON. PT. DOES NOT USE CALL LIGHT. REMINDED OF CALL LIGHT. PT. DENIES PAIN. TELEMETRY MONITORING.
[2016-12-21 00:46] VITALS: BP 132/80
[2016-12-21] MEDS: ALBUTEROL SULFATE/IPRATROPIU 3 ML SOL IH SCH ×5 (01:25→20:12)
--- NOTE | 2016-12-21 02:00 | NUR ---
WENT TO RESTROOM . BED ALARM ON. REFUSING TO USE URINAL. PREFERS TO RUN TO RESTROOM. STANDBY ASSIST BY IT TRAINER. REMINDED TO USE URINAL AND USE CALL LIGHT FOR HELP. TELEMETRY MONITORING.
[2016-12-21 04:28] VITALS: BP 120/81
--- NOTE | 2016-12-21 04:30 | NUR ---
SLEEPING. NO RESTLESSNESS NOTED. CALL LIGHT WITH IN REACH. BED ALARM ON RT WITH FORGETFULNESS AT TIMES.
[2016-12-21] MEDS: methylPREDNISolone SS 125 MG/2 ML VIAL IVP SCH ×3 (05:24→21:00)
--- NOTE | 2016-12-21 06:55 | NUR ---
PT. MEDICATED WITH MORPHINE IVP 2 MG REQUESTED RT C/O CHRONIC GENERALIZED PAIN. TELEMETRY MONITORING. REMINDED TO USE CALL LIGHT FOR HELP OR FOR ANY PAIN.
--- NOTE | 2016-12-21 07:15 | NUR ---
RECEIVED REPORT FROM AUSTYN NI. PT SEEN AT BEDSIDE. PT IS AWAKE, ON ROOM AIR WITH NO S/S SOB. PT HAS INVOLUNTARY LEG SHAKING AND STATES THAT HE FEELS "ON EDGE". PT HAS LEFT AC 20G IV SALINE LOCKED AT THIS TIME. ON TELE MONITOR RUNNING SINUS RHYTHM. SKIN COVERED IN TATTO[place], DRY AND INTACT. PT USES URINAL TO VOID FREELY. GAIT UNASSESSED AT THIS TIME. SAFETY MEASURES CHECKED, CALL LIGHT LEFT AT BEDSIDE. BED ALARM ON. NOTIFIED PATIENT TO CALL RN IF HE NEEDS ASSISTANCE. PT VERBALIZED UNDERSTANDING. WILL CONTINUE TO MONITOR.
[2016-12-21] MEDS: BUDESONIDE 0.5 MG/2 ML NEBU INH SCH ×2 (07:23→20:25)
[2016-12-21 08:00] VITALS: BP 122/82
--- NOTE | 2016-12-21 08:19 | NUR ---
RECEIVED CALL FROM LAB PT HAS POSITIVE BLOOD CULTURE GRAM POSITIVE COCCI IN PAIRS AND CHAINS.
--- NOTE | 2016-12-21 08:29 | NUR ---
DR HERNANDEZ PAGED.
[2016-12-21] MEDS: ENOXAPARIN 40 MG/0.4 ML SYR SUBQ SCH (08:42)
--- NOTE | 2016-12-21 08:45 | NUR ---
DR HERNANDEZ PAGED AGAIN.
[2016-12-21] MEDS: LORazepam 0.5 MG TAB PO SCH ×2 (08:53→20:59)
--- NOTE | 2016-12-21 08:53 | NUR ---
ROUTINE MEDICATIONS GIVEN WITH EDUCATION. PT VERBALIZED UNDERSTANDING. PT TOLERATED WELL.
[2016-12-21] MEDS: ATORVASTATIN 20 MG TAB PO SCH (08:57)
[2016-12-21] MEDS: METOPROLOL 25 MG TAB PO SCH (08:57)
[2016-12-21] MEDS: ASPIRIN 81 MG TAB.CHEW PO SCH (08:57)
[2016-12-21] MEDS ORDERED: LEVOFLOXACIN 750 MG TAB PO SCH (09:00)
--- NOTE | 2016-12-21 10:00 | NUR ---
RECEIVED CALL FROM PT'S MOTHER, ONEYDA. UPDATED HER ON PATIENT CONDITION. IF THERE IS AN EMERGENCY, SHE WANTS HOSPITAL TO CALL HER. HOME PHONE [phone], CELL PHONE [phone]. SHE IS UNABLE TO COME BECAUSE SHE LIVES IN [place], [place].
--- NOTE | 2016-12-21 10:02 | NUR ---
RECEIVED CALLBACK FROM DR HERNANDEZ. NOTIFIED HIM OF POSITIVE BLOOD CULTURE GRAM POSITIVE COCCI IN PAIRS AND CHAINS. ORDERS RECEIVED. WILL FOLLOW UP.
[2016-12-21] MEDS: guaiFENesin 600 MG TABER PO PRN ×2 (11:37→22:04)
--- NOTE | 2016-12-21 11:45 | NUR ---
PT REQUESTS FOR CARRIE, DR HERNANDEZ PAGED. MUCINEX PRN ADMINISTERED.
[2016-12-21] MEDS ORDERED: BISACODYL 10 MG SUPP RC PRN (11:50)
[2016-12-21 12:00] VITALS: BP 108/66
[2016-12-21] MEDS ORDERED: VANCOMYCIN PER PHARMACY MC PRN (13:05)
--- NOTE | 2016-12-21 13:08 | NUR ---
PT REFUSED BREATHING TX AT THIS TIME. BENEFITS EXPLAINED TO PT REGARDING ADMINISTRATION OF TX, PT REFUSED. PT NOT SOB AND NOT IN ANY DISTRESS. WILL CONTINUE TO MONITOR.
[2016-12-21] MEDS: BENZOCAINE/MENTHOL 1 LOZ MM PRN ×3 (13:10→18:06)
--- NOTE | 2016-12-21 13:10 | NUR ---
PT REQUESTING LOZENGE. CEPACOL ADMINISTERED.
[2016-12-21] MEDS ORDERED: VANCOMYCIN 1,500 MG in DEXTROSE 5% 250 ML IV SCH (13:30)
--- NOTE | 2016-12-21 15:00 | NUR ---
PT STATING THAT HE FEELS SHORT OF BREATH. PT SATING AT 95% ON ROOM AIR. RR 25. PT REQUESTS BREATHING TREATMENT. RESP THERAPIST CALLED.
--- NOTE | 2016-12-21 15:23 | NUR ---
PT REQUESTING LOZENGE. CEPACOL ADMINISTERED. WILL CONTINUE TO MONITOR.
[2016-12-21 16:00] VITALS: BP 124/69
--- NOTE | 2016-12-21 18:00 | NUR ---
PT REQUESTING FOR SODA. DIETARY NOTIFIED.
--- NOTE | 2016-12-21 18:06 | NUR ---
PT REQUESTING FOR LOZENGE. CEPACOL ADMINISTERED.
--- NOTE | 2016-12-21 18:11 | NUR ---
PT EATING DINNER TRAY. NO S/S DISTRESS OR SOB AT THIS TIME. WILL CONTINUE TO MONITOR.
--- NOTE | 2016-12-21 19:02 | NUR ---
ENDORSED PLAN OF CARE TO AUSTYN NI.
--- NOTE | 2016-12-21 19:25 | NUR ---
RECEIVED FROM AM RN IN BED AWAKE AND ALERT. NO SOB. SITTING UP IN BED. CALL LIGHT WITH IN REACH. TELEMETRY MONITORING. IVF SITE TO RIGHT HAND #22 INTACT AND WITH GOOD BLOOD RETURN. ENCOURAGED TO CALL FOR ANY HELP HE MAY NEED.
--- NOTE | 2016-12-21 19:41 | NUR ---
PT. WITH VISITORS AT THIS TIME AND TALKING WITH THEM . PT. AGITATED AND ENCOURAGED TO CALM DOWN. "KWAME" REQUESTED FOR BREATHING TREATMENT FROM RESPIRATORY THERAPIST. CALLED RT. AWARE AND IS COMING OVER.
[2016-12-21 20:00] VITALS: BP 110/50
[2016-12-21] MEDS: VANCOMYCIN 1,500 MG in DEXTROSE 5% 250 ML IV SCH (21:10)
--- NOTE | 2016-12-21 22:00 | NUR ---
PT. STILL AWAKE AND WATCHING TV. USES CALL LIGHT FOR HELP. PROVIDED WITH SNACK REQUESTED. TELEMETRY MONITORING.
--- NOTE | 2016-12-22 | NUR ---
PT. SLEEPING AT THIS TIME.
[2016-12-22 01:06] VITALS: BP 128/79
--- NOTE | 2016-12-22 01:33 | NUR ---
SLEEPING. NO RESTLESSNESS. [address] USES CALL LIGHT FOR HELP.
[2016-12-22] MEDS: ALBUTEROL SULFATE/IPRATROPIU 3 ML SOL IH SCH ×4 (01:43→19:45)
[2016-12-22 04:41] VITALS: BP 126/82
--- NOTE | 2016-12-22 04:50 | NUR ---
PT. SLEEPING. ASSISTED TO RESTROOM BY NURSE OR SALES AND MARKETING ASSOCIATE. PREFERS TO GO BATHROOM TO URINATE. USES CALL LIGHT FOR HELP. NO PAIN COMPLAINTS DONE THIS SHIFT YET.
[2016-12-22] MEDS: methylPREDNISolone SS 125 MG/2 ML VIAL IVP SCH ×2 (06:05→12:44)
[2016-12-22] MEDS: BUDESONIDE 0.5 MG/2 ML NEBU INH SCH ×2 (07:22→19:45)
--- NOTE | 2016-12-22 07:30 | NUR ---
RECEIVED PT FROM APPRENTICE LINEMAN THIRD STEP AUSTYN NI. PT AWAKE, ALERT. SLEEPING IN BED BUT EASILY AWAKING WITH INITIAL ASSESSMENT. PT ON O2 NC 2L/MIN, NO S/S OF RESPIRATORY DISTRESS NOTED. PT CAN MOVE HIS EXTREMITIES, CALL LIGHT IN REACH, POC DISCUSSED WITH PT, PT VERBALIZED UNDERSTANDING. WILL CONTINUE TO MONITOR.
[2016-12-22 08:00] VITALS: BP 118/70
--- NOTE | 2016-12-22 08:31 | NUR ---
PATIENT HAS BEEN SCREENED AND CATEGORIZED HIGH NUTRITION RISK. PATIENT WILL BE SEEN WITHIN 1-2 DAYS OF ADMISSION. 12/21/16-12/22/[address]
[2016-12-22] MEDS: ATORVASTATIN 20 MG TAB PO SCH (08:33)
[2016-12-22] MEDS: METOPROLOL 25 MG TAB PO SCH (08:34)
[2016-12-22] MEDS: ASPIRIN 81 MG TAB.CHEW PO SCH (08:34)
[2016-12-22] MEDS: LORazepam 0.5 MG TAB PO SCH ×2 (08:34→20:37)
[2016-12-22] MEDS: ENOXAPARIN 40 MG/0.4 ML SYR SUBQ SCH (08:35)
--- NOTE | 2016-12-22 09:00 | NUR ---
DUE MEDS GIVEN. PT TOLERATED WELL.
[2016-12-22] MEDS: VANCOMYCIN 1,500 MG in DEXTROSE 5% 250 ML IV SCH ×2 (10:25→22:13)
--- NOTE | 2016-12-22 11:00 | NUR ---
PT RESTING IN BED, WATCHING TV. NO S/S OF RESPIRATORY DISTRESS NOTED.
[2016-12-22] MEDS: guaiFENesin DM 200/20 MG-10 ML 10 ML UDC PO PRN ×2 (11:21→22:53)
[2016-12-22 12:00] VITALS: BP 140/68
--- NOTE | 2016-12-22 12:25 | NUR ---
LUNCH TRAY SERVED. PT HAD A GOOD APPETITE.
--- NOTE | 2016-12-22 13:51 | NUR ---
12/22/16 RD INITIAL ASSESSMENT COMPLETED PLEASE REFER TO NUTRITION ASSESSMENT UNDER CARE ACTIVITY FOR ESTIMATED NUTRITIONAL NEEDS. RD RECOMMENDATIONS: CONTINUE ON REGULAR DIET TOLERATED 2. PT MEETING >90% KCAL AND PROTEIN NEEDS. 3. RD WILL MONITOR GLUCOSE LEVELS. 4. RD WILL F/U 3-5 DAYS; MODERATE RISK. LAUREN EISENBERG RD
--- NOTE | 2016-12-22 14:35 | NUR ---
PT SLEEPING IN BED. NO SOB.
--- NOTE | 2016-12-22 14:53 | NUR ---
CM NOTE INITIAL REVIEW FAXED TO [facility] / FAX# [phone], ATTN: CHET #[phone]
[2016-12-22 16:00] VITALS: BP 116/69
--- NOTE | 2016-12-22 17:05 | NUR ---
PT SLEEPING IN BED. NO SOB, DENIES PAIN OR DISCOMFORT AT THIS TIME.
--- NOTE | 2016-12-22 17:08 | NUR ---
SERVED PT URINAL, PT HAD CLEAR YELLOW URINE 200ML
--- NOTE | 2016-12-22 19:12 | NUR ---
REPORT GIVEN TO RADIATOR MECHANIC RN GUY. PT AWAKE, ALERT. RESTING IN BED, NO S/S OF RESPIRATORY DISTRESS NOTED. IN STABLE CONDITION AT THIS TIME.
--- NOTE | 2016-12-22 19:15 | NUR ---
RECEIVED OT FROM NORMA ZAAMN PT IS AAOX4 AMBULATORY, HL ON LEFT HAND INFUSING WELL ON TELEMETRY SR, DRY COUGH INITIAL ASSESSMENT DONE .
[2016-12-22 20:00] VITALS: BP 121/72
--- NOTE | 2016-12-22 21:00 | NUR ---
PT IS ASSISTED CHANGING LINEN AND GIVEN HS SNACK
[2016-12-23] VITALS: BP 107/69
--- NOTE | 2016-12-23 | NUR ---
PT SLEEPING WELL ON TELEMETRY SR NOT DISTRESS NOTED
[2016-12-23] MEDS: ALBUTEROL SULFATE/IPRATROPIU 3 ML SOL IH SCH ×4 (01:49→19:35)
--- NOTE | 2016-12-23 03:19 | NUR ---
PT VOIDING WELL ON URINAL ON 2 LTS VIA NC ON TELEMETRY SR
[2016-12-23 04:00] VITALS: BP 117/76
--- NOTE | 2016-12-23 05:41 | NUR ---
SPONGE BATH GIVEN LINEN CHANGED NOT DISTRESS NOTED ON TELEMETRY ST
--- NOTE | 2016-12-23 06:43 | NUR ---
PT RESTING ON BED NOT DISTRESS, ON TELEMETRY ST
[2016-12-23] MEDS: BUDESONIDE 0.5 MG/2 ML NEBU INH SCH ×2 (07:00→19:35)
--- NOTE | 2016-12-23 07:10 | NUR ---
RECEIVED REPORT FROM NIGHT NURSE, PT IS AAOX4, ON O2 3L VIA NC, IV TO LEFT HAND 22G SALINE LOCK, SKIN INTACT, NO SOB NOTED, INITIAL ASSESSMENT COMPLETED, REVIEWED PLAN OF CARE WITH PT, PT VERBALIZED UNDERSTANDING.ALL NEEDS MET. CALL LIGHT WITHIN REACH. WILL CONTINUE TO MONITOR.
[2016-12-23 08:00] VITALS: BP 130/72
[2016-12-23] MEDS: guaiFENesin DM 200/20 MG-10 ML 10 ML UDC PO PRN (08:42)
[2016-12-23] MEDS: LORazepam 0.5 MG TAB PO SCH ×2 (08:42→20:33)
[2016-12-23] MEDS: predniSONE 20 MG TAB PO SCH (08:42)
[2016-12-23] MEDS: ASPIRIN 81 MG TAB.CHEW PO SCH (08:43)
[2016-12-23] MEDS: METOPROLOL 25 MG TAB PO SCH (08:43)
[2016-12-23] MEDS: ATORVASTATIN 20 MG TAB PO SCH (08:43)
--- NOTE | 2016-12-23 08:51 | NUR ---
DUE MEDICATIONS GIVEN. PT CURRENTLY RESTING IN BED. ALL NEEDS MET. WILL CONTINUE TO MONITOR.
[2016-12-23] MEDS: ENOXAPARIN 40 MG/0.4 ML SYR SUBQ SCH (09:00)
--- NOTE | 2016-12-23 11:30 | NUR ---
FAXED CONCURRENT REVIEW TO [facility] [phone] PHONE CHET [phone]
[2016-12-23 12:00] VITALS: BP 119/59
[2016-12-23] MEDS ORDERED: LINEZOLID 600MG PREMIX 300 ML IV SCH (12:00)
[2016-12-23] MEDS: LINEZOLID 600MG PREMIX 300 ML IV SCH ×2 (12:37→23:45)
--- NOTE | 2016-12-23 12:40 | NUR ---
DUE MEDICATION GIVEN. PT CURRENTLY SLEEPING. CALL LIGHT WITHIN REACH
--- NOTE | 2016-12-23 14:22 | NUR ---
PT CURRENTLY SLEEPING. PT ON O2 2L VIA NC. CALL LIGHT WITHIN REACH. WILL CONTINUE TO MONITOR.
[2016-12-23 16:00] VITALS: BP 124/56
--- NOTE | 2016-12-23 16:38 | NUR ---
PT CURRENTLY SLEEPING. CALL LIGHT WITHIN REACH.
--- NOTE | 2016-12-23 19:26 | NUR ---
ENDORSED PLAN OF CARE TO NIGHT NURSE, PT IN STABLE CONDITION
--- NOTE | 2016-12-23 19:27 | NUR ---
RECEIVED PT IN STABLE CONDITION FROM AUSTYN SORIANO. NO SOB, NO SIGNS OF DISTRESS. PT IS AOX4, AMBULATORY. SKIN IS INTACT. PT DENIES PAIN AT THIS TIME. HR TACHY, OTHER VS WNL. PT ON 3L O2 NC. IV TO LT HAND 22G PATENT, ASYMPTOMATIC, INTACT, SALINE LOCKED. PT REQUESTED SNACKS, SODA, AND A SANDWICH, WILL PROVIDE. PLAN OF CARE DISCUSSED WITH PT. SAFETY MEASURES IN PLACE. CALL LIGHT WITHIN REACH. WILL CONTINUE TO MONITOR.
[2016-12-23 20:00] VITALS: BP 124/73
--- NOTE | 2016-12-23 20:33 | NUR ---
PT TOLERATED DUE MED WELL. PROVIDED PT WITH SANDWICH, SNACK, AND SODA. IV SITE ASYMPTOMATIC, INTACT, PATENT, SALINE LOCKED. NO SOB, NO SIGNS OF DISTRESS. PT ON 3L O2 NC. PT DENIES PAIN AT THIS TIME. PLAN OF CARE DISCUSSED WITH PT. SAFETY MEASURES IN PLACE. CALL LIGHT WITHIN REACH. WILL CONTINUE TO MONITOR.
--- NOTE | 2016-12-23 22:37 | NUR ---
PT ASLEEP IN BED. NO SOB, NO SIGNS OF DISTRESS. PT ON 3L O2 NC. IV SITE ASYMPTOMATIC, INTACT, SALINE LOCKED. SAFETY MEASURES IN PLACE. CALL LIGHT WITHIN REACH. WILL CONTINUE TO MONITOR.
[2016-12-24] VITALS: BP 124/75
--- NOTE | 2016-12-24 00:20 | NUR ---
HR TACHY, OTHER VS WNL. PT ON 3L O3 NC. IV SITE ASYMPTOMATIC, INTACT, IVPB RUNNING. PT DENIES PAIN AT THIS TIME. PT C/O RESTLESSNESS, MEDICATED PT WITH IV PRN ATIVAN PER MD ORDER. PT TOLERATED WELL. PLAN OF CARE DISCUSSED WITH PT. SAFETY MEASURES IN PLACE. CALL LIGHT WITHIN REACH. WILL CONTINUE TO MONITOR.
[2016-12-24] MEDS: ALBUTEROL SULFATE/IPRATROPIU 3 ML SOL IH SCH ×4 (01:00→19:53)
--- NOTE | 2016-12-24 01:36 | NUR ---
PT REFUSED SCHEDULED HHN TX, PT INFORMED ON BENEFITS OF TX, STILL REFUSED AND ASKED TO BE LEFT ALONE TO SLEEP, NO RESP DISTRESS OR SOB NOTED, WILL CONTINUE TO MONITOR.
[2016-12-24 04:00] VITALS: BP 140/81
--- NOTE | 2016-12-24 04:21 | NUR ---
HR 110, OTHER VS WNL. PT ON 3L O3 NC. IV SITE ASYMPTOMATIC, INTACT, SALINE LOCKED. PT DENIES PAIN AT THIS TIME. PLAN OF CARE DISCUSSED WITH PT. SAFETY MEASURES IN PLACE. CALL LIGHT WITHIN REACH. WILL CONTINUE TO MONITOR.
--- NOTE | 2016-12-24 07:28 | NUR ---
RECEIVED REPORT FROM NIGHT NURSE, PT IS AAOX4, ON O2 2L VIA NC, IV TO LEFT HAND 22G SALINE LOCK, SKIN INTACT, NO SOB NOTED, INITIAL ASSESSMENT COMPLETED, REVIEWED PLAN OF CARE WITH PT, PT VERBALIZED UNDERSTANDING.ALL NEEDS MET. CALL LIGHT WITHIN REACH. WILL CONTINUE TO MONITOR.
--- NOTE | 2016-12-24 07:28 | NUR ---
ENDORSED PT IN STABLE CONDITION TO AUSTYN SORIANO. ALL NEEDS HAVE BEEN MET AT THIS TIME.
[2016-12-24 07:46] VITALS: BP 121/94
[2016-12-24] MEDS: BUDESONIDE 0.5 MG/2 ML NEBU INH SCH ×2 (07:53→19:53)
[2016-12-24] MEDS: LORazepam 0.5 MG TAB PO SCH ×2 (08:40→20:13)
[2016-12-24] MEDS: ASPIRIN 81 MG TAB.CHEW PO SCH (08:40)
--- NOTE | 2016-12-24 08:40 | NUR ---
DUE MEDICATIONS GIVEN. PT CURRENTLY RESTING IN BED. ALL NEEDS MET. CALL LIGHT WITHIN REACH. WILL CONTINUE TO MONITOR
[2016-12-24] MEDS: METOPROLOL 25 MG TAB PO SCH (08:41)
[2016-12-24] MEDS: ENOXAPARIN 40 MG/0.4 ML SYR SUBQ SCH (08:41)
[2016-12-24] MEDS: ATORVASTATIN 20 MG TAB PO SCH (08:41)
[2016-12-24] MEDS: predniSONE 20 MG TAB PO SCH (08:41)
--- NOTE | 2016-12-24 10:38 | NUR ---
FAXED CONCURRENT REVIEW TO [facility] [phone] PHONE CHET [phone]
[2016-12-24] MEDS: LINEZOLID 600MG PREMIX 300 ML IV SCH ×2 (11:25→23:35)
--- NOTE | 2016-12-24 11:25 | NUR ---
DUE MEDICATION GIVEN. PT TOLERATED WELL. ALL NEEDS MET. CALL LIGHT WITHIN REACH. WILL CONTINUE TO MONITOR.
[2016-12-24 12:00] VITALS: BP 115/70
--- NOTE | 2016-12-24 14:00 | NUR ---
PT RETUNED TO UNIT FROM OR. VS 98.1, BP 149/88, HR 91 PULSE OX 95%. ALL NEEDS ME. CALL LIGHT WITHIN REACH. WILL CONTINUE TO MONITOR Addendum: 12/24/16 at 1643 by Reena Lion RN WRONG PT
--- NOTE | 2016-12-24 14:15 | NUR ---
PT CURRENTLY SLEEPING. CALL LIGHT WITHIN REACH. WILL CONTINUE TO MONITOR.
[2016-12-24 15:54] VITALS: BP 116/64
--- NOTE | 2016-12-24 16:44 | NUR ---
CHECKED IN ON PT, PT CURRENTLY SLEEPING.ALL LIGHT WITHIN REACH. WILL CONTINUE TO MONITOR.
--- NOTE | 2016-12-24 19:15 | NUR ---
ENDORSED PLAN OF CARE TO NIGHT NURSE. PT IN STABLE CONDITION.
--- NOTE | 2016-12-24 19:20 | NUR ---
RECEIVED REPORT FROM AUSTYN DEVINE AT BEDSIDE. PT AAOX4. PT HAS RASH/BRUISES ON HIS BACK, ABDOMEN AND LEFT ARM. PT AMBULATES. PT HAS IV TO LEFT HAND G 22; ASYMPTOMATIC, PATENT AND INTACT. VS ARE STABLE, PT DENIES PAIN. PT ON 02 2L NC. ORIENTED PT TO ROOM AND SURROUNDINGS AND USE OF CALL LIGHT. EXPLAINED PLAN OF CARE TO PT AND HE VERBALIZES UNDERSTANDING. CALL LIGHT WITHIN REACH.
[2016-12-24 20:00] VITALS: BP 129/73
--- NOTE | 2016-12-24 20:14 | NUR ---
PT TOLERATED 2100 MED WELL. VS STABLE. WILL CONTINUE TO MONITOR PT.
--- NOTE | 2016-12-24 23:44 | NUR ---
ZYVOX INFUSING AT THIS TIME. PT STABLE, WILL CONTINUE TO MONITOR PT.
[2016-12-25] VITALS: BP 113/52
--- NOTE | 2016-12-25 01:01 | NUR ---
PT SLEEPING COMFORTABLY IN BED. NO DISTRESS NOTED. WILL CONTINUE TO MONITOR PT.
[2016-12-25] MEDS: ALBUTEROL SULFATE/IPRATROPIU 3 ML SOL IH SCH ×2 (01:47→07:06)
--- NOTE | 2016-12-25 02:57 | NUR ---
PT AMBULATED TO THE RESTROOM. PT SEEMS VERY TIRED WHEN HE AMBULATES. VS STABLE, PT BACK IN BED NOW WITH O2 NC ON. SATURATION 96%. CALL LIGHT WITHIN REACH.
[2016-12-25 04:00] VITALS: BP 119/61
--- NOTE | 2016-12-25 04:48 | NUR ---
PT ASK UNTIL WHAT TIME HE WILL BE NPO. I EXPLAINED TO PT THAT UNTIL PROCEDURE IN THE MORNING IS DONE.
--- NOTE | 2016-12-25 05:55 | NUR ---
PT SLEEPING COMFORTABLY AT THIS TIME, NO SIGNS OF DISTRESS OR DISCOMFORT NOTED. WILL CONTINUE TO MONITOR PT.
[2016-12-25] MEDS: BUDESONIDE 0.5 MG/2 ML NEBU INH SCH (07:06)
[2016-12-25] MEDS ORDERED: ZYVOX600 MG IV (07:22)
--- NOTE | 2016-12-25 07:25 | NUR ---
ENDORSED PLAN OF CARE TO RN FRANK FOR CONTINUITY OF CARE. PT IN STABLE CONDITION.
--- NOTE | 2016-12-25 07:26 | NUR ---
RECEIVED PT FROM PM RN. PT SEEN AT BEDSIDE. AAOX4, ON BREATHING TREATMENT AT THIS TIME. NO S/S DISTRESS OR SOB AT THIS TIME. IV NOTED ON RIGHT HAND 22G SALINE LOCKED. PT IS NPO AT THIS TIME FOR LOU SCHEDULED TODAY. PT IS OBESE; SKIN WARM, DRY, INTACT. RASH NOTED ON CHEST AND BACK. NO C/O PAIN AT THIS TIME. PT ABLE TO AMBULATE WITH ASSIST. SAFETY MEASURES CHECKED, CALL LIGHT LEFT AT BEDSIDE. WILL CONTINUE TO MONITOR.
[2016-12-25 08:00] VITALS: BP 113/71
[2016-12-25] MEDS ORDERED: LIDOCAINE VISCOUS 2% 20 ML UDC ONE (10:09)
[2016-12-25] MEDS ORDERED: MIDAZOLAM 2 MG/2 ML VIAL ONE (10:12)
[2016-12-25] MEDS ORDERED: fentaNYL 0.05 MG/ML VIAL ONE (10:12)
--- NOTE | 2016-12-25 10:33 | NUR ---
SS NOTE: PER KALPANA FROM [facility] ([phone]), PT CAN GO TO ROOM 117A ANYTIME UNDER DR. Rahul HORTON. AYUSH ALEXANDRA.
--- NOTE | 2016-12-25 10:50 | NUR ---
PT OFF UNIT FOR LOU.
--- NOTE | 2016-12-25 11:43 | NUR ---
AYUSH NOTE PATIENT PLACED ON WILL-CALL THROUGH [facility]. PENDING LOU RESULTS, PATIENT WILL BE PICKED UP VIA [facility] W/ VIA VT GOING TO [facility], RM 117A. AUTH# PROVIDED BY AYUSH ROSENBERG FOR IE: [id number] Addendum: 12/25/16 at 1250 by Dawson Tomlin RN 1250 WILL-CALL RELEASED; ETA 1530. NEO HALE MADE AWARE.
--- NOTE | 2016-12-25 11:45 | NUR ---
PT BACK FROM LOU. VSS; WILL CONTINUE TO MONITOR.
--- NOTE | 2016-12-25 11:50 | NUR ---
CM NOTE CONCURRENT REVIEW FAXED TO [facility] / FAX# [phone], ATTN: CHET #[phone]
[2016-12-25 12:00] VITALS: BP 122/72
--- NOTE | 2016-12-25 12:00 | NUR ---
CALLED DIETARY FOR LATE LUNCH TRAY. PT REQUESTING SODA ALSO. DIETARY NOTIFIED WITH MESSAGE.
[2016-12-25] MEDS ORDERED: ALBUTEROL SULFATE/IPRATROPIU 3 ML SOL IH SCH (13:00)
[2016-12-25] MEDS: ENOXAPARIN 40 MG/0.4 ML SYR SUBQ SCH (13:03)
[2016-12-25] MEDS: ASPIRIN 81 MG TAB.CHEW PO SCH (13:06)
[2016-12-25] MEDS: LORazepam 0.5 MG TAB PO SCH (13:06)
[2016-12-25] MEDS: predniSONE 20 MG TAB PO SCH (13:07)
[2016-12-25] MEDS: ATORVASTATIN 20 MG TAB PO SCH (13:08)
[2016-12-25] MEDS: LINEZOLID 600MG PREMIX 300 ML IV SCH (13:08)
[2016-12-25] MEDS: METOPROLOL 25 MG TAB PO SCH (13:08)
--- NOTE | 2016-12-25 13:08 | NUR ---
AM MEDS GIVEN WITH EDUCATION. PT VERBALIZED UNDERSTANDING. PT EDUCATED ON HIS BLOOD INFECTION, VRE. PT VERBALIZED UNDERSTANDING. WILL CONTINUE TO MONITOR.
[2016-12-25 13:50] VITALS: BP 122/76
--- NOTE | 2016-12-25 14:00 | NUR ---
PT REQUESTING FOR CRACKERS. CRACKERS GIVEN TO PATIENT.
--- NOTE | 2016-12-25 15:00 | NUR ---
DISCHARGE EDUCATION GIVEN TO PATIENT. PT VERBALIZED UNDERSTANDING. DISCHARGE FORMS SIGNED BY PATIENT.
--- NOTE | 2016-12-25 15:00 | NUR ---
REPORT GIVEN BY JANEEN LARSON RN TO [facility].
--- NOTE | 2016-12-25 15:55 | NUR ---
REPORT GIVEN TO EMS. PT OFF UNIT TO TRANSFER TO SNF. ACCOMPANIED BY EMS.
[2017-02-05] MEDS ORDERED: PREDNISONE10 MG PO (11:29)
[2017-02-05] MEDS ORDERED: LEVAQUIN750 MG IV (12:01)
== END 2016-12-25 16:00 | DRG 720 ==
LOC: MED 11:33 → MTU 14:22
PROVIDERS: ADMIT Hospitalist; ATTEND Hospitalist
DX: A41.81 Sepsis due to Enterococcus (principal); J18.9 Pneumonia, unspecified organism; I11.0 Hypertensive heart disease with heart failure; I50.9 Heart failure, unspecified; Z68.41 Body mass index [BMI] 40.0-44.9, adult; J44.0 Chronic obstructive pulmonary disease with (acute) lower respiratory infection; E66.9 Obesity, unspecified; G47.30 Sleep apnea, unspecified; T38.0X5A Adverse effect of glucocorticoids and synthetic analogues, initial encounter; Z96.641 Presence of right artificial hip joint; E78.5 Hyperlipidemia, unspecified; B19.20 Unspecified viral hepatitis C without hepatic coma; Z16.21 Resistance to vancomycin; J44.1 Chronic obstructive pulmonary disease with (acute) exacerbation; Y92.89 Other specified places as the place of occurrence of the external cause; Z87.898 Personal history of other specified conditions; Z87.891 Personal history of nicotine dependence; Z87.01 Personal history of pneumonia (recurrent)

== ENCOUNTER 2017-01-30 06:40 | Inpatient (IN) | payer OTHER ==
[~2017-01-30] VITALS: Ht 177.8 cm; Wt 122.0 kg
[~2017-01-30 06:40] MED LIST changes: +ACET-2619 PO; +ACET-2858 PO; +ALBU3SOL21 IH; +ASPI81CT27 PO; -ASPIRIN ADULT L81 M1 PO; +ATI.5 PO; -ATIVAN0.5 M1 PO; +ATOR40TA PO; +BISA-213 RC; +GUAI600T72 PO; +IPRA3AMP IH; -IPRATROPIUM BROM3 M1 IH; +LINE600T IV; -LOPRESSOR25 MG PO; +LOV40I SUBQ; -LOVENOX40 MG/0.1 SUBQ; +MAGN400S60 PO; +MELA5SGL PO; +METO25TA PO; +NA P135N RC; +ONDA4TAB PO; +PRED10TA5 PO; -PREDNISONE10 MG PO; +PUL.5N INH; -PULMICORT0.5 MG/2 M INH; -VIBRAMYCIN100 MG PO
[2017-01-30 06:43] VITALS: BP 126/95
--- NOTE | 2017-01-30 06:45 | NUR ---
51 Y/O M W/C/O SOB, AND LABORED BREATHING. O2 SAT RA 85%, DIMINISHED LUG SOUNDS ON BILATERAL LOBES. O2 3LT RUNNIGN THROUGH NC. O2 SAT AFTER O2 96%. PT STATES HAS A HX OF COPD, CHF,HTN, HEP C, AND ASTHMA. ER MD AND RT CALLED AT BEDSIDE.
--- NOTE | 2017-01-30 06:47 | NUR ---
PT TAKEN TO BED 7
[2017-01-30] MEDS ORDERED: ALBUTEROL SULFATE/IPRATROPIU 3 ML SOL IH ONE ×2 (06:50→06:58)
--- NOTE | 2017-01-30 06:53 | NUR ---
Respiratory Therapist at bedside for respiratory intervention.
--- NOTE | 2017-01-30 06:54 | NUR ---
ADMITING DX: SOB HX: COPD ASTHMA LIVER DZ HEP C LOC AWAKE AND ALERT RESPONSIVE OBESE GOOD HISTORIAN HFW POSITON EDUCATION PROVIDED TO PATIENT WITH ACKNOWLEDGEMENT ON HHN THERAPY AND RESPIRATORY DRUG HHN THERAPY GIVEN ORDERED ENCOURGAED DEEP BREATH DURING THERAPY TOLERATED WELL WITHOUT INCIDENT POST HH THERPAY PLACED BACK ON SUPPLEMENTAL OXYGEN AT 2 LPM VIA NC
--- NOTE | 2017-01-30 06:57 | NUR ---
Dr. Villegas evaluating patient at bedside.
[2017-01-30] MEDS ORDERED: SODIUM CHLORIDE FLUSH 10 ML SYR IVF ONE (07:00)
--- NOTE | 2017-01-30 07:06 | NUR ---
X-Ray at bedside.
--- NOTE | 2017-01-30 07:15 | NUR ---
REPORT GIVEN TO GAL DIAZ. PT IN O2, SLIGHTY TACHY.
--- NOTE | 2017-01-30 07:20 | NUR ---
Pt found sitting in bed on night monitor, sinus tachycardia with PVC. Pt on O2 nasal canula 2L/min. RR 28. Lab at bedside for blood draw. Pt is AOX4, calm and cooperative.
--- NOTE | 2017-01-30 07:21 | NUR ---
Parminder little in [facility] - 01/30/17 at 0721 by [facility] X-Ray at bedside.
--- NOTE | 2017-01-30 07:21 | NUR ---
Patient being evaluated by physician at bedside.
[2017-01-30] MEDS ORDERED: MORPHINE SULFATE 4 MG/ML SYR IVP ONE ×2 (07:25→08:35)
[2017-01-30 07:26] LABS: BASOPHILS # (AUTO) 0.4 K/uL (0.00-0.22); EOSINOPHILS # (AUTO) 0.2 K/uL (0-0.4); EOSINOPHILS % (AUTO) 1.2 % (0.0-4.0); HEMATOCRIT 42.8 % (36-52); LYMPHOCYTES # (AUTO) 3.7 K/uL (2.0-11.5); LYMPHOCYTES % (AUTO) 28.5 % (20.5-51.1); MEAN CORPUSCULAR HEMOGLOBIN 29 pg (27-31); MEAN CORPUSCULAR HGB CONC 33 g/dL (33-37); MEAN CORPUSCULAR VOLUME 87 fL (80-94); MONOCYTES # (AUTO) 0.7 K/uL (0.8-1.0); MONOCYTES % (AUTO) 5.3 % (1.7-9.3); NEUTROPHILS # (AUTO) 8.1 K/uL (1.8-7.7); PLATELET COUNT (AUTO) 153 K/uL (140-450); RED BLOOD CELL COUNT(AUTO) 4.92 MIL/uL (4.20-6.10)
[2017-01-30 07:29] LABS: WHITE BLOOD COUNT (AUTO) 13.1 K/uL (4.8-10.8)
[2017-01-30 07:30] LABS: ANION GAP 8.9 (8-16); CALCIUM 8.7 mg/dL (8.5-10.1); CARBON DIOXIDE 31.6 mmol/L (21-32); CREATININE 0.9 mg/dL (0.6-1.3); POTASSIUM 3.5 mmol/L (3.5-5.1)
[2017-01-30] MEDS ORDERED: MORPHINE SULFATE 4 MG/ML SYR ONE ×2 (07:34→08:54)
[2017-01-30 07:37] LABS: ALBUMIN 3.7 g/dL (3.4-5.0); TOTAL BILIRUBIN 1.1 mg/dL (0.0-1.0); TOTAL PROTEIN, SERUM 6.5 g/dL (6.4-8.2)
[2017-01-30 07:41] LABS: INR 1.1 (0.8-1.2); PARTIAL THROMBOPLASTIN TIME 28.3 secs (22-35.6); PROTHROMBIN TIME 10.6 secs (10.8-13.4)
[2017-01-30 07:48] LABS: LACTIC ACID 0.7 mmol/L (0.4-2.0)
--- NOTE | 2017-01-30 08:00 | NUR ---
Pt appears to be resting comfortably. No distress noted at this time.
[2017-01-30] MEDS ORDERED: AZITHROMYCIN 500 MG in DEXTROSE 5% 250 ML IV ONE (08:05)
[2017-01-30] MEDS ORDERED: NACL 0.9% 1,000 ML IV ONE (08:05)
--- NOTE | 2017-01-30 08:17 | NUR ---
Pt requesting Dilaudid for pain. Pt states "Can I get Dilaudid for the pain. My pain is still bad." Dr. Rosales notified.
[2017-01-30] MEDS ORDERED: cefTRIAXone 1,000 MG VIAL ONE (08:21)
[2017-01-30] MEDS ORDERED: AZITHROMYCIN 500 MG INJ VIAL IV ONE (08:22)
--- NOTE | 2017-01-30 08:54 | NUR ---
Patient will be admitted to care of Dr. Rollins. Admited to TELE. Will go to room 113. Belongings list completed. Report to Gilma ZAMAN.
--- NOTE | 2017-01-30 09:15 | NUR ---
Pt ambulated to restroom. Returned from restroom in moderate distress, SOB. Pt placed back onto O2, increased O2 to 3L/min NC. Pt O2% 94%. Pt left sitting at the bedside and used bedside table to hold him up.
--- NOTE | 2017-01-30 09:38 | NUR ---
Pt more comfortable at this time. No distress noted. 94% on 3L NC. HR 104.
--- NOTE | 2017-01-30 10:10 | NUR ---
Pt resting comfortably at this time. Awaiting for orders from Dr. Rollins to transfer patient to Tele unit.
[2017-01-30] MEDS ORDERED: ACETAMINOPHEN 325 MG TAB PO PRN (10:30)
[2017-01-30] MEDS ORDERED: ONDANSETRON 4 MG/2 ML VIAL IVP PRN (10:30)
--- NOTE | 2017-01-30 10:45 | NUR ---
Pt transferred to Tele via gurney accompanied by LAWRENCE Gray and RN Ghislaine on radiographer cardiac catheterization to room 113.
[2017-01-30 11:00] VITALS: BP 150/101
--- NOTE | 2017-01-30 11:00 | NUR ---
RECEIVED PT ON UNIT VIA GURANJEL FROM ER. PT IS A/OX4, AMBULATORY, SKIN IS INTACT, IV THE LT AC, SALINE LOCK, PATENT, INTACT, FLUSHING WELL, PT IN ON O2 3L NC, PT HAS LABORED BREATHING, PT SITTING UP IN BED, RT CALLED TO REQUEST BREATHING TREATMENT, SAFETY/FALL PRECAUTIONS ARE IN PLACE, DISCUSSED PLAN OF CARE WITH PT, PT VERBALIZED UNDERSTANDING, ORIENTED PT TO ROOM, CALL LIGHT IS WITHIN REACH, WILL CONTINUE TO MONITOR.
[2017-01-30] MEDS: ALBUTEROL 0.083% 2.5 MG/3 ML NEBU IH PRN ×2 (11:22→15:36)
--- NOTE | 2017-01-30 11:23 | NUR ---
51/M WITH C/O OF SOB AND NASAL DRYNESS FROM SUPPLEMENTAL OXYGEN USE AWAKE AND ALERT OBESE HFW POSITION PATIENT ASSESSMENT DONE INDICATED FOR HHN PRN THERAPY ENCOURAGED DEEP BREATH DURING THERAPY TOLERATED WELL WITHOUT INCIDENT HX: COPD/ASTHMA POST HHN THERAPT TITRATED FIO2 TO 2 LPM VIA NC ADDED HUMIDIFIER LIME VAT TENDER TO MONITOR
[2017-01-30] MEDS: HYDROcodone/APAP 5/325 MG 1 TAB TAB PO PRN ×3 (11:46→23:16)
[2017-01-30 12:00] VITALS: BP 177/91
[2017-01-30] MEDS: LORazepam 2 MG/ML VIAL IVP PRN ×2 (12:44→23:29)
[2017-01-30] MEDS ORDERED: LEVOFLOXACIN 500 MG/D5W PREMIX 100 ML IV SCH (13:00)
[2017-01-30] MEDS ORDERED: NON-FORMULARY ITEM (Melatonin 3 MG) PO PRN (13:15)
[2017-01-30] MEDS ORDERED: MAGNESIUM HYDROXIDE 2400 MG/30 ML UDC PO PRN (13:15)
[2017-01-30] MEDS ORDERED: guaiFENesin 600 MG TABER PO PRN (13:15)
[2017-01-30] MEDS ORDERED: BISACODYL 10 MG SUPP RC PRN (13:15)
[2017-01-30] MEDS ORDERED: ASPIRIN 81 MG TAB.CHEW PO SCH (13:15)
--- NOTE | 2017-01-30 13:20 | NUR ---
DR. CAREY IS AT PATIENT'S BEDSIDE, SPEAKING WITH PT.
[2017-01-30] MEDS ORDERED: FUROSEMIDE 40 MG/4 ML VIAL IVP SCH (13:23)
--- NOTE | 2017-01-30 15:33 | NUR ---
ASSISTED PT TO RESTROOM AND BACK INTO BED, PT COMPLAINED OF SOB, CALLED RT FOR BREATHING TREATMENT.
--- NOTE | 2017-01-30 15:36 | NUR ---
RELOCATION SERVICES SPECIALIST CALLED BY [facility] TO ASSESS PATIENT FOR SOB PATIENT PRESENTING WITH INCREASED WORK OF BREATHING ASSESSMENT DONE INDICATED FOR HHN PRN THERAPY AT THIS TIME Addendum: 01/30/17 at 1555 by Stephen Malik RT REVIEWED PULMONARY STATUS AND PATIENT HISTORY WITH MERY RELOCATION SERVICES SPECIALIST SUGGESTION OF CHANGING FREQUENCY TO Q4 & Q2 PRN SOB AND/OR WHEEZE; SOLU-MEDROL IVP
[2017-01-30] MEDS ORDERED: ALBUTEROL SULFATE/IPRATROPIU 3 ML SOL IH PRN (15:40)
[2017-01-30 16:00] VITALS: BP 149/92
--- NOTE | 2017-01-30 16:25 | NUR ---
CHANGED OXYGEN DEVICE TO AN OXYMIZER AT 4 LPM CALL CENTER REPRESENTATIVE TO MONITOR Addendum: 01/30/17 at 1629 by Stephen Malik RT CALL CENTER REPRESENTATIVE TO ADVISE ANGELA/AUSTYN
[2017-01-30 16:38] LABS: CREATINE KINASE MB 1.1 ng/mL (0-3.6)
[2017-01-30] MEDS: FUROSEMIDE 40 MG/4 ML VIAL IVP SCH (17:10)
[2017-01-30] MEDS ORDERED: DILTIAZEM 120 MG CAPER PO SCH (17:15)
--- NOTE | 2017-01-30 17:30 | NUR ---
PT DUE MEDICATIONS WERE GIVEN, PT TOLERATED WELL, CALL LIGHT WITHIN REACH, WILL CONTINUE TO MONITOR.
[2017-01-30 18:57] LABS: AMPHETAMINE, URINE NEG. ng/ml (NEG <=1000); BARBITURATE, URINE NEG. ng/ml (NEG <=200); BENZODIAZEPINE, URINE NEG. ng/mL (NEG <=200); CANNABINOID, URINE NEG. ng/mL (NEG <=50); COCAINE, URINE NEG. ng/mL (NEG <=300); OPIATE, URINE NEG. ng/mL (NEG <=2000); PHENCYCLIDINE SCREEN,URINE NEG. ng/mL (NEG <=25)
--- NOTE | 2017-01-30 19:25 | NUR ---
ENDORSED PT TO AUSTYN BLACK. FOR CONTINUITY OF CARE, PT STABLE AT THIS TIME.
--- NOTE | 2017-01-30 19:30 | NUR ---
RECEIVED REPORT FROM DAY RN AT BEDSIDE, PATIENT RESTING COMFORTABLE IN BED, AAOX4, NO SOB OR SIGN OF DISTRESS AT THIS TIME, PATIENT ON OXYMIZER AT 4L, NO SOB OR SIGN OF DISTRESS, O2 SATS AT 95%. IV TO LAC PATENT AND INTACT. SKIN INTACT WITH BILATERAL LOWER EXTREMITY EDEMA. ABDOMEN IS ROUND AND HARD, DISCUSSED PLAN OF CARE WITH PATIENT, PATIENT VERBALIZED UNDERSTANDING, SAFETY MEASURES CHECKED, CALL LIGHT WITHIN REACH. WILL CONTINUE TO MONITOR.
--- NOTE | 2017-01-30 19:53 | NUR ---
PT ASLEEP AT THIS TIME, NO SOB NOTED
[2017-01-30 19:57] VITALS: BP 153/94
[2017-01-30] MEDS: LORazepam 0.5 MG TAB PO SCH (20:55)
--- NOTE | 2017-01-30 20:58 | NUR ---
PM MED ADMINISTERED, PATIENT TOLERATED WELL, CALL LIGHT WITHIN REACH. WILL CONTINUE TO MONITOR.
[2017-01-30 21:13] LABS: CREATINE KINASE MB 0.9 ng/mL (0-3.6)
--- NOTE | 2017-01-30 23:57 | NUR ---
VITAL SIGNS STABLE, PATIENT GOT UP TO USE RESTROOM,WAS VERY SOB WHEN BACK IN BED, PATIENT STATED HE FELT LIKE HE WAS SUFFOCATING, PATIENT SATS AT 90% WITH OXIMIZER AT 6L. STATED IT IS NORMAL FOR HIM TO TAKE A LONG TIME TO CATCH HIS BREATH AND THAT HE HAS ANXIETY. PATIENT TRYING TO GET COMFORTABLE. WILL CONTINUE TO CLOSELY MONITOR.
[2017-01-31] VITALS (7 sets, daily range): BP systolic 126–145; BP diastolic 70–87
--- NOTE | 2017-01-31 | NUR ---
RADIOLOGY CALLING REGARDING ORDER FOR CT SCAN, PATIENT TOLD DAY NURSE HE WOULD NOT BE ABLE TO LAY DOWN LONG ENOUGH AND CANT BREATHE, I ASKED PATIENT IF HE WAS OKAY TO TRY TONIGHT AND PATIENT STATED HE WOULD TRY IN THE MORNING. PT STATED HE FEELS LIKE HE SUFFOCATES WHEN HE LAYS DOWN, RADIOLOGY AWARE.
--- NOTE | 2017-01-31 00:06 | NUR ---
CALLED RT TO CHECK PATIENT, PT STATED HE CANT BREATHE, PATIENT SITTING AT EDGE OF BED TRYING TO CATCH BREATH, O2 SATS AT 88%. WILL CONTINUE TO CLOSELY MONITOR
--- NOTE | 2017-01-31 00:09 | NUR ---
RT AT PATIENT BEDSIDE
[2017-01-31] MEDS: ALBUTEROL 0.083% 2.5 MG/3 ML NEBU INH PRN ×2 (00:11→19:24)
--- NOTE | 2017-01-31 00:25 | NUR ---
PATIENT RECEIVED BREATHING TREATMENT, STILL SOB, PAGED THE DESIGN MAINTENANCE ENGINEER DR HERNANDEZ, RT SUGGESTED STEROIDS FOR THE PATIENT, RECEIVED ORDERS FOR SOLUMEDROL IVP 80MG Q6H. WILL FOLLOW UP WITH ORDERS.
--- NOTE | 2017-01-31 00:40 | NUR ---
IV TO RIGHT AC CAME OUT, TIP INTACT, NEW IV STARTED TO RIGHT HAND 24G, PATIENT TOLERATED WELL. O2 SATS AT 96%.
[2017-01-31] MEDS: methylPREDNISolone SS 125 MG/2 ML VIAL IVP SCH (01:15)
--- NOTE | 2017-01-31 02:10 | NUR ---
PATIENT SLEEPING, NO SOB OR SIGN OF DISTRESS, PATIENTS OXIMIZER WAS OFF, REAPPLIED ON TO PATIENT, O2 SATS AT 88%, WILL CONTINUE TO CLOSELY MONITOR
--- NOTE | 2017-01-31 04:28 | NUR ---
VITAL SIGNS STABLE, NO SOB OR SIGN OF DISTRESS, PATIENT LAYING COMFORTABLE IN BED, O2 SAT AT 91%. CALL LIGHT WITHIN REACH. WILL CONTINUE TO MONITOR
[2017-01-31] MEDS ORDERED: HYDROcodone/APAP 5/325 MG 1 TAB TAB ONE (05:23)
[2017-01-31] MEDS: HYDROcodone/APAP 5/325 MG 1 TAB TAB PO PRN ×2 (05:26→12:08)
[2017-01-31 05:41] LABS: BASOPHILS # (AUTO) 0.1 K/uL (0.00-0.22); BASOPHILS % (AUTO) 0.7 % (0.0-2.0); EOSINOPHILS # (AUTO) 0.2 K/uL (0-0.4); EOSINOPHILS % (AUTO) 1.3 % (0.0-4.0); HEMATOCRIT 44.2 % (36-52); HEMOGLOBIN 14.5 g/dL (12.0-18.0); LYMPHOCYTES # (AUTO) 1.5 K/uL (2.0-11.5); MEAN CORPUSCULAR HEMOGLOBIN 29 pg (27-31); MEAN CORPUSCULAR HGB CONC 33 g/dL (33-37); MEAN CORPUSCULAR VOLUME 87 fL (80-94); MONOCYTES # (AUTO) 0.2 K/uL (0.8-1.0); MONOCYTES % (AUTO) 1.8 % (1.7-9.3); NEUTROPHILS # (AUTO) 11.6 K/uL (1.8-7.7); NEUTROPHILS % (AUTO) 85.2 % (42.2-75.2); PLATELET COUNT (AUTO) 145 K/uL (140-450); RED BLOOD CELL COUNT(AUTO) 5.07 MIL/uL (4.20-6.10); RED CELL DISTRIBUTION WIDTH 17.4 % (11.6-13.7); WHITE BLOOD COUNT (AUTO) 13.6 K/uL (4.8-10.8)
[2017-01-31 06:29] LABS: ALBUMIN 3.5 g/dL (3.4-5.0); ANION GAP 8.4 (8-16); CALCIUM 8.8 mg/dL (8.5-10.1); CARBON DIOXIDE 34.6 mmol/L (21-32); CREATININE 0.8 mg/dL (0.6-1.3); TOTAL BILIRUBIN 1.1 mg/dL (0.0-1.0); TOTAL PROTEIN, SERUM 6.8 g/dL (6.4-8.2)
--- NOTE | 2017-01-31 06:48 | NUR ---
PATIENT HAS BEEN SCREENED AND CATEGORIZED MODERATE NUTRITION RISK. PATIENT WILL BE SEEN WITHIN 3-5 DAYS OF ADMISSION. 02/02/17-02/04/17 STEPHANIE PRICE MS, RDN
--- NOTE | 2017-01-31 07:30 | NUR ---
ENDORSED PATIENT TO DAY RN AT BEDSIDE, PATIENT IN STABLE CONDITION
--- NOTE | 2017-01-31 07:31 | NUR ---
PT AWAKE AND ALERT AND ORIENTED X4, NO SIGNS OF ACUTE DISTRESS, BREATHING EVEN AND UNLABORED WITH USE OF ACCESSORY MUSCLES, BOWEL SOUNDS ACTIVE IN ALL 4 QUADRANTS, BEDREST HOWEVER ABLE TO AMBULATE WITH ASSIST TO COMMODE, SKIN INTACT, IV PATENT WITHOUT REDNESS AROUND SITE, BED IN LOW POSITION WITH BILATERAL HALF SIDE RAILS UP, CALL LIGHT WITHIN REACH.
[2017-01-31] MEDS ORDERED: AZITHROMYCIN 500 MG in DEXTROSE 5% 250 ML IV SCH (09:00)
[2017-01-31] MEDS: DILTIAZEM 120 MG CAPER PO SCH (09:07)
[2017-01-31] MEDS: LEVOFLOXACIN 750 MG/D5W PREMIX 150 ML IV SCH (09:07)
[2017-01-31] MEDS: LORazepam 0.5 MG TAB PO SCH ×2 (09:08→20:27)
[2017-01-31] MEDS: METOPROLOL 25 MG TAB PO SCH (09:08)
[2017-01-31] MEDS: ATORVASTATIN 20 MG TAB PO SCH (09:08)
[2017-01-31] MEDS: FUROSEMIDE 40 MG/4 ML VIAL IVP SCH ×2 (09:09→20:27)
[2017-01-31] MEDS: ENOXAPARIN 40 MG/0.4 ML SYR SUBQ SCH (09:11)
[2017-01-31 13:44] LABS: ALBUMIN 3.4 g/dL (3.4-5.0); ANION GAP 7.5 (8-16); CALCIUM 9.2 mg/dL (8.5-10.1); CARBON DIOXIDE 36.7 mmol/L (21-32); CREATININE 0.8 mg/dL (0.6-1.3); POTASSIUM 4.2 mmol/L (3.5-5.1); TOTAL BILIRUBIN 0.9 mg/dL (0.0-1.0)
[2017-01-31 14:34] LABS: BLOOD GAS PH 7.316 (7.35-7.45)
[2017-01-31 14:35] LABS: BLOOD GAS HCO3 36.2 mmol/L; BLOOD GAS PCO2 72.5 mmHg (20-50); BLOOD GAS PO2 61.6 mmHg
[2017-01-31 14:36] LABS: BLOOD GAS O2 SAT% 88.3 % (92.0-98.5)
--- NOTE | 2017-01-31 14:56 | NUR ---
SPOKE WITH PHUC FROM RT, PCO2 RESULT 72.5, PHUC SPOKE WITH DR CAREY PUT PATIENT ON BIPAP FOR NOW, WILL HOLD OFF ON CT AT THIS TIME.
--- NOTE | 2017-01-31 15:58 | NUR ---
Patient had difficult breathing and was given a prn breathing treatment. Doctor Ayo notified and PRN bipap was placed. RT notified Dr that patient was not stable enough to take to CT scan at this time due to low SPO2 and high C02. Patient placed on bipap and responded well after treatment. RT will monitor patient and keep patient on bipap as needed
--- NOTE | 2017-01-31 19:30 | NUR ---
PT AWAKE AND ALERT, NO SIGNS OF ACUTE DISTRESS. BED IN LOW POSITION WITH BILATERAL HALF SIDE RAILS UP, CALL LIGHT WITHIN REACH. ENDORSED TO BREWMASTER NURSE FOR CONTINUITY OF CARE.
--- NOTE | 2017-01-31 19:30 | NUR ---
RECEIVED REPORT FROM DAY RN AT BEDSIDE, PATIENT RESTING CALMLY IN BED, AWAKE AAOX4 ON BIPAP AT 40% O2 SATS AT 94%, NO SOB NOTED AT THIS TIME. RESPIRATORY AT BEDSIDE. SKIN INTACT, DISCUSSED PLAN OF CARE WITH PATIENT, PATIENT VERBALIZED UNDERSTANDING, SAFETY MEASURES CHECKED, CALL LIGHT WITHIN REACH. WILL CONTINUE TO MONITOR.
--- NOTE | 2017-01-31 20:35 | NUR ---
PM MEDS ADMINISTERED PATIENT TOLERATED WELL, RESTING IN BED ON BIPAP, NO SOB WILL CONTINUE TO CLOSELY MONITOR
--- NOTE | 2017-01-31 22:45 | NUR ---
PATIENT AGITATED/ FRUSTRATED STATING HE CANT GET COMFORTABLE AND HE HAS BEEN LIKE THIS ALL DAY, REPOSITIONED PILLOW MULTIPLE TIMES. PATIENT MORE AGITATED STATING HE DOES NOT KNOW WHAT HE WANTS THAT HE IS VERY UNCOMFORTABLE, PATIENT CANT COMMUNICATE HOW TO MAKE HIM MORE COMFORTABLE, ADMINISTER NORCO FOR PAIN PATENT COMPLAINS OF. RT TO ROOM TO READJUST BIPAP. WILL CONTINUE TO CLOSELY MONITOR.
[2017-02-01] VITALS: BP 149/87
[2017-02-01] MEDS: HYDROcodone/APAP 5/325 MG 1 TAB TAB PO PRN ×3 (00:04→20:29)
--- NOTE | 2017-02-01 00:20 | NUR ---
VITAL SIGNS STABLE, NO SOB OR SIGN OF DISTRESS AT THIS TIME, CALL LIGHT WITHIN REACH. WILL CONTINUE TO MONITOR
[2017-02-01] MEDS: methylPREDNISolone SS 125 MG/2 ML VIAL IVP SCH (01:25)
--- NOTE | 2017-02-01 02:30 | NUR ---
PATIENT SLEEPING, NO SIGN OF DISTRESS, CALL LIGHT WITHIN REACH. WILL CONTINUE TO MONITOR
[2017-02-01 04:00] VITALS: BP 154/93
[2017-02-01] MEDS: FUROSEMIDE 40 MG/4 ML VIAL IVP SCH ×3 (04:39→20:18)
--- NOTE | 2017-02-01 04:40 | NUR ---
VITAL SIGNS STABLE, PATIENT RESTING IN BED, NO SIGN OF DISTRESS, WILL CONTINUE TO MONITOR
[2017-02-01 06:16] LABS: BASOPHILS # (AUTO) 0.1 K/uL (0.00-0.22); BASOPHILS % (AUTO) 1.3 % (0.0-2.0); EOSINOPHILS # (AUTO) 0.1 K/uL (0-0.4); EOSINOPHILS % (AUTO) 0.6 % (0.0-4.0); HEMATOCRIT 45.7 % (36-52); HEMOGLOBIN 14.8 g/dL (12.0-18.0); LYMPHOCYTES # (AUTO) 1.4 K/uL (2.0-11.5); LYMPHOCYTES % (AUTO) 13.4 % (20.5-51.1); MEAN CORPUSCULAR HEMOGLOBIN 28 pg (27-31); MEAN CORPUSCULAR HGB CONC 32 g/dL (33-37); MEAN CORPUSCULAR VOLUME 88 fL (80-94); MONOCYTES # (AUTO) 0.3 K/uL (0.8-1.0); MONOCYTES % (AUTO) 2.8 % (1.7-9.3); NEUTROPHILS # (AUTO) 8.9 K/uL (1.8-7.7); NEUTROPHILS % (AUTO) 81.9 % (42.2-75.2); PLATELET COUNT (AUTO) 148 K/uL (140-450); RED CELL DISTRIBUTION WIDTH 17.3 % (11.6-13.7); WHITE BLOOD COUNT (AUTO) 10.8 K/uL (4.8-10.8)
--- NOTE | 2017-02-01 07:00 | NUR ---
PT AWAKE AND ALERT, NO SIGNS OF ACUTE DISTRESS. NOTED WITH BIPAP AT 40%, KEPT HOB ELEVATED AT LEAST 30 DEGREES. NO C/O SOB AT THIS TIME. SKIN IS WARM AND DRY. OFFLOAD TO PRESSURE AREAS. NO SIGNS OF ANY BOWEL/BLADDER DISCOMFORT. ABLE TO AMBULATE TO BSC WITH ASSIST. DENIES OF ANY PAIN AT THIS TIME. ALL NEEDS ATTENDED, SAFETY PRECAUTIONS MAINTAINED. CALL LIGHT WITHIN REACH.
[2017-02-01] MEDS: ALBUTEROL 0.083% 2.5 MG/3 ML NEBU INH PRN ×2 (07:24→08:55)
--- NOTE | 2017-02-01 07:30 | NUR ---
ENDORSED PATIENT TO DAY RN AT BEDSIDE, PATIENT IN STABLE CONDITION
[2017-02-01 08:00] VITALS: BP 140/100
[2017-02-01] MEDS: DILTIAZEM 120 MG CAPER PO SCH (08:28)
[2017-02-01] MEDS: ATORVASTATIN 20 MG TAB PO SCH (08:28)
[2017-02-01] MEDS: METOPROLOL 25 MG TAB PO SCH (08:28)
[2017-02-01] MEDS: LORazepam 0.5 MG TAB PO SCH ×2 (08:29→20:18)
[2017-02-01] MEDS: LEVOFLOXACIN 750 MG/D5W PREMIX 150 ML IV SCH (08:29)
[2017-02-01] MEDS: ENOXAPARIN 40 MG/0.4 ML SYR SUBQ SCH (08:36)
[2017-02-01 12:00] VITALS: BP 118/83
--- NOTE | 2017-02-01 13:00 | NUR ---
WAS SEEN BY DR. CAREY. RECEIVED NEW ORDERS, NOTED AND CARRIED OUT.
[2017-02-01] MEDS: LORazepam 2 MG/ML VIAL IVP PRN (13:25)
--- NOTE | 2017-02-01 14:00 | NUR ---
ADDITIONAL ORDERS RECEIVED FROM Diane VIGIL CHANGE BREATHING TREATMENT ALBUTEROL TO Q4H SCHEDULED. NOTED AND CARRIED OUT.
--- NOTE | 2017-02-01 15:00 | NUR ---
PT BIPAP FIO2 CURRENTLY AT 50%. CONTINUE TO MONITOR.
[2017-02-01 15:45] VITALS: BP 145/81
[2017-02-01 17:37] LABS: BLOOD GAS PCO2 58.2 mmHg (20-50); BLOOD GAS PH 7.414 (7.35-7.45)
[2017-02-01 17:38] LABS: BLOOD GAS BASE EXCESS 9.5 mmol/L (-2.0-2.0); BLOOD GAS HCO3 36.4 mmol/L; BLOOD GAS PO2 50.6 mmHg
[2017-02-01 17:39] LABS: BLOOD GAS O2 SAT% 86.6 % (92.0-98.5)
--- NOTE | 2017-02-01 18:43 | NUR ---
PT ALERT AND RESPONSIVE, NO SIGNS OF ACUTE DISTRESS. WILL ENDORSE TO ONCOMING DIESEL FITTER MECHANIC NURSE FOR CONTINUITY OF CARE.
[2017-02-01] MEDS: ALBUTEROL 0.083% 2.5 MG/3 ML NEBU INH SCH ×2 (19:02→23:02)
--- NOTE | 2017-02-01 19:30 | NUR ---
RECEIVED REPORT FROM DAY RN AT BEDSIDE, PATIENT RESTING IN BED AAOX4, ON BIPAP 50%, NO SOB ONLY WITH ACTIVITY. IV TO RIGHT WRIST PATENT, IV TO LT WRIST PATENT AND INTACT, SKIN INTACT, DENIES PAIN AT THIS TIME, DISCUSSED PLAN OF CARE WITH PATIENT, PATIENT VERBALIZED UNDERSTANDING, CALL LIGHT WITHIN REACH. WILL CONTINUE TO MONITOR.
[2017-02-01 19:36] VITALS: BP 134/95
--- NOTE | 2017-02-01 20:30 | NUR ---
PM MEDS ADMINISTERED, PATIENT TOLERATED WELL, PATIENT GOT UP TO BEDSIDE COMMODE, DESATS TO LOW 80S WITHOUT BIPAP, PATIENT BACK TO BED BIPAP ON O2 SATS AT 97%. CALL LIGHT WITHIN REACH. WILL CONTINUE TO MONITOR.
[2017-02-02] VITALS: BP 146/87
--- NOTE | 2017-02-02 | NUR ---
VITAL SIGNS STABLE, NO SOB OR SIGN OF DISTRESS, CALL LIGHT WITHIN REACH. WILL CONTINUE TO MONITOR.
[2017-02-02] MEDS: methylPREDNISolone SS 125 MG/2 ML VIAL IVP SCH ×4 (01:23→23:43)
[2017-02-02] MEDS: HYDROcodone/APAP 5/325 MG 1 TAB TAB PO PRN ×3 (01:31→18:35)
--- NOTE | 2017-02-02 02:30 | NUR ---
PATIENT SLEEPING, NO SIGN OF DISTRESS, CALL LIGHT WITHN REACH. WILL CONTINUE TO MONITOR.
[2017-02-02] MEDS: ALBUTEROL 0.083% 2.5 MG/3 ML NEBU INH SCH ×6 (03:22→22:43)
[2017-02-02 04:00] VITALS: BP 147/93
--- NOTE | 2017-02-02 04:00 | NUR ---
VITAL SIGN STABLE, NO SOB OR SIGN OF DISTRESS, CALL LIGHT WITHIN REACH. WILL CONTINUE TO MONITOR.
[2017-02-02] MEDS: FUROSEMIDE 40 MG/4 ML VIAL IVP SCH ×2 (05:18→12:04)
--- NOTE | 2017-02-02 07:17 | NUR ---
RECEIVED PT ON BIPAP, SETTINGS 14/5, R 12, FIO2 50%. PT IS TOLERATING BIPAP WELL AT THIS TIME. B.S ARE DIMINISHED BILATERALLY. BIPAP ALARMS ARE ON AND FUNCTIONING. PT IS NOT IN ANY DISTRESS AT THIS TIME. BIPAP IS PLUGGED INTO RED OUTLET. WILL CONTINUE TO MONITOR.
--- NOTE | 2017-02-02 07:30 | NUR ---
ENDORSED PATIENT TO DAY RN AT BEDSIDE, PATIENT IN STABLE CONDITION
--- NOTE | 2017-02-02 07:38 | NUR ---
REPORT RECEIVED FROM ACTUARIAL SCIENCE TEACHER, PT SLEEPING WITH EYE CLOSED, ON BIPAP 50%, RESP EVEN UNLABORED IN NAD, SKIN COLOR WNL, AROUSES EASILY BY VOICE, PLAN OF CARE DISCUSSED, NO IMMEDIATE NEEDS VOICED AT THIS TIME, CALL HALL WITHIN REACH, SIDE RAILS UP X2, BED LOCKED IN LOW POSITION, WILL CONTINUE TO MONITOR.
[2017-02-02 08:00] VITALS: BP 139/83
--- NOTE | 2017-02-02 08:30 | NUR ---
PT UP TO SIDE OF BED FOR BREAKFAST WITH OXIMIZER 6L O2, INCREASED WORK OF BREATHING NOTED WITH EXERTION, O2 SAT MAINTAINED AT >94%, WILL CLOSELY MONITOR AND REPLACE BACK TO BIPAP WHEN DONE EATING.
[2017-02-02] MEDS: LORazepam 0.5 MG TAB PO SCH ×2 (08:41→20:43)
[2017-02-02] MEDS: LEVOFLOXACIN 750 MG/D5W PREMIX 150 ML IV SCH (08:42)
[2017-02-02] MEDS: ATORVASTATIN 20 MG TAB PO SCH (08:42)
[2017-02-02] MEDS: DILTIAZEM 120 MG CAPER PO SCH (08:43)
[2017-02-02] MEDS: METOPROLOL 25 MG TAB PO SCH (08:43)
[2017-02-02 08:50] LABS: HEMATOCRIT 44.7 % (36-52); HEMOGLOBIN 14.5 g/dL (12.0-18.0); LYMPHOCYTES % (AUTO) 13.5 % (20.5-51.1); MEAN CORPUSCULAR HEMOGLOBIN 28 pg (27-31); MEAN CORPUSCULAR HGB CONC 32 g/dL (33-37); MEAN CORPUSCULAR VOLUME 88 fL (80-94); NEUTROPHILS % (AUTO) 81.6 % (42.2-75.2); PLATELET COUNT (AUTO) 170 K/uL (140-450); RED CELL DISTRIBUTION WIDTH 17.4 % (11.6-13.7); WHITE BLOOD COUNT (AUTO) 10.8 K/uL (4.8-10.8)
[2017-02-02 08:51] LABS: BASOPHILS # (AUTO) 0.2 K/uL (0.00-0.22); BASOPHILS % (AUTO) 1.4 % (0.0-2.0); EOSINOPHILS # (AUTO) 0.2 K/uL (0-0.4); EOSINOPHILS % (AUTO) 1.4 % (0.0-4.0); LYMPHOCYTES # (AUTO) 1.5 K/uL (2.0-11.5); MONOCYTES # (AUTO) 0.2 K/uL (0.8-1.0); MONOCYTES % (AUTO) 2.1 % (1.7-9.3); NEUTROPHILS # (AUTO) 8.7 K/uL (1.8-7.7)
[2017-02-02 09:03] LABS: ALBUMIN 3.5 g/dL (3.4-5.0); ANION GAP 9.9 (8-16); CALCIUM 9.1 mg/dL (8.5-10.1); CARBON DIOXIDE 37.2 mmol/L (21-32); CREATININE 1.3 mg/dL (0.6-1.3); POTASSIUM 4.1 mmol/L (3.5-5.1); TOTAL BILIRUBIN 0.8 mg/dL (0.0-1.0)
[2017-02-02] MEDS: ENOXAPARIN 40 MG/0.4 ML SYR SUBQ SCH (09:59)
--- NOTE | 2017-02-02 10:21 | NUR ---
PT RESTING QUIETLY RESP EVEN UNLABORED ON BIPAP IN NAD, UP TO BEDSIDE COMMODE, PT REFUSES TO USE URINAL IN BED, DENIES OTHER IMMEDIATE NEEDS, CALL HALL WITHIN REACH, SIDE RAILS UP X2, NECESSARY PERSONAL ITEMS WITHIN REACH, WILL CONTINUE TO MONITOR.
--- NOTE | 2017-02-02 11:11 | NUR ---
PT TAKEN OFF OF BIPAP DUE TO PT ASKING FOR A BREAK. PT PLACED ON 4L OXYMIZER. PT IS NOT SOB AT THIS TIME. WILL CONTINUE TO MONITOR. SPO2 95%.
[2017-02-02 12:00] VITALS: BP 136/90
[2017-02-02] MEDS ORDERED: guaiFENesin 600 MG TABER PO PRN (12:21)
--- NOTE | 2017-02-02 12:31 | NUR ---
02/02/17 RD INITIAL ASSESSMENT COMPLETED PLEASE REFER TO NUTRITION ASSESSMENT UNDER CARE ACTIVITY FOR ESTIMATED NUTRITIONAL NEEDS. 1. RECOMMEND [address] TO FOLLOW-UP 3-5 DAYS; MODERATE RISK ROHINI HUNT RD
--- NOTE | 2017-02-02 12:36 | NUR ---
CM NOTE INITIAL REVIEW SENT TO [facility] FAX# [phone] PH# CHET [phone] FEBRUARY [phone]
--- NOTE | 2017-02-02 13:11 | NUR ---
FOUND PT PLACED BACK ON BIPAP WITH ORIGINAL SETTINGS. WILL CONTINUE TO MONITOR.
[2017-02-02 13:40] LABS: BLOOD GAS PH 7.393 (7.35-7.45)
[2017-02-02 13:41] LABS: BLOOD GAS BASE EXCESS 11.9 mmol/L (-2.0-2.0); BLOOD GAS O2 SAT% 98.4 % (92.0-98.5); BLOOD GAS PCO2 67.2 mmHg (20-50); BLOOD GAS PO2 120.6 mmHg
--- NOTE | 2017-02-02 15:17 | NUR ---
FIO2 DECREASED TO 40%. WILL CONTINUE TO MONITOR.
[2017-02-02 16:00] VITALS: BP 143/93
--- NOTE | 2017-02-02 16:42 | NUR ---
PT REMAINS ON BIPAP AT THIS TIME NO CHANGES MADE TO BIPAP. PT IS SLEEPING AT THIS TIME. BIPAP ALARMS REMAIN ON AND FUNCTIONING.
--- NOTE | 2017-02-02 19:30 | NUR ---
RECEIVED REPORT FROM DAY SHIFT NURSE. PT IS AWAKE, ALERT, ON TELE, DENIES PAIN. ON BIPAP , HAS NO S/S OF RESPIRATORY DISTRESS/DISCOMFORT NOTED. IV SITE IS PATENT AND INTACT. PLAN OF CARE DISCUSSED, VERBALIZED UNDERSTANDING. SAFETY MEASURES CHECKED, CALL LIGHT WITHIN REACH. WILL CONTINUE TO MONITOR.
--- NOTE | 2017-02-02 19:30 | NUR ---
REPORT GIVEN TO CALL CENTER MANAGER, PT IN STABLE CONDITION
[2017-02-02 20:00] VITALS: BP 145/91
--- NOTE | 2017-02-02 20:46 | NUR ---
DUE PO MED GIVEN. PROVIDED DRUG INFO, BENEFITS AND S/E, VERBALIZED UNDERSTANDING. PT TOLERATED WELL.
[2017-02-03] VITALS: BP 152/97
--- NOTE | 2017-02-03 | NUR ---
ON BIPAP, HAS NO S/S OF RESPIRATORY DISTRESS/DISCOMFORT. V/S CHECKED AND STABLE.
--- NOTE | 2017-02-03 02:00 | NUR ---
PT SLEEPING. ON BIPAP. CALL LIGHT WITHIN REACH.
[2017-02-03] MEDS: ALBUTEROL 0.083% 2.5 MG/3 ML NEBU INH SCH ×6 (03:02→23:21)
[2017-02-03 04:00] VITALS: BP 151/94
--- NOTE | 2017-02-03 04:00 | NUR ---
ON BIPAP, SLEEPING, PT AROUSABLE BY HIS NAME. V/S CHECKED, STABLE. NO S/S OF RESPIRATORY DISTRESS/DISCOMFORT NOTED.
[2017-02-03] MEDS: methylPREDNISolone SS 125 MG/2 ML VIAL IVP SCH ×3 (05:12→17:26)
--- NOTE | 2017-02-03 06:22 | NUR ---
ON BIPAP. DENIED ANY PAIN. NO DISTRESS NOTED. CALL LIGHT WITHIN REACH.
--- NOTE | 2017-02-03 06:31 | NUR ---
RECEIVED PT ON V60 MONTIEL ON ST 14\5 RR `12 FIO2 40 ALARMS ARE ON AND FUNCTIONAL PT WEARING F\F MASK SIZE LG BS DIMINISHED CONT, POX IN PLACE 6L OXYMIZER ON AT BEDSIDE PT IS AWAKE BIPAP PLUGGED INTO RED OUTLET HHN GIVEN I\L WITH 2.5 MG ALBUTEROL
--- NOTE | 2017-02-03 06:43 | NUR ---
PT UNABLE TO PRODUCE SPUTUM AT THIS TIME
--- NOTE | 2017-02-03 07:28 | NUR ---
ENDORSED PT TO DAY SHIFT NURSE. PT IN STABLE CONDITION.
--- NOTE | 2017-02-03 07:35 | NUR ---
REPORT RECIEVED FROM FITTING ROOM CHECKER, PT SLEEPING QUIETLY, AROUSES TO VOICE, PT ON BIPAP, RESP EVEN UNLABORED, SKIN WARM DRY COLOR WNL, IV SL TO LEFT WRIST, PLAN OF CARE REVIEWED, PT DENIES ANY IMMEDIATE NEEDS, CALL HALL WITHIN REACH, BED LOCKED IN LOW POSITION, SIDE RAILS UP X2, WILL CONTINUE TO MONITOR.
[2017-02-03 08:00] VITALS: BP 143/96
[2017-02-03] MEDS: LEVOFLOXACIN 750 MG/D5W PREMIX 150 ML IV SCH (08:50)
--- NOTE | 2017-02-03 08:50 | NUR ---
SCHEDULED MEDS GIVEN PER ORDER, PT ADAM WELL, PT REMAINS ON BIPAP, DENIES ANY IMMEDIATE NEEDS, CALL HALL WITHIN REACH, SIDE RAILS UP X2, BED LOCKED IN LOW POSITION, WILL CONTINUE TO MONITOR.
[2017-02-03] MEDS: FUROSEMIDE 40 MG/4 ML VIAL IVP SCH (08:51)
[2017-02-03] MEDS: ATORVASTATIN 20 MG TAB PO SCH (08:51)
[2017-02-03] MEDS: DILTIAZEM 120 MG CAPER PO SCH (08:51)
[2017-02-03] MEDS: METOPROLOL 25 MG TAB PO SCH (08:52)
[2017-02-03] MEDS: LORazepam 0.5 MG TAB PO SCH ×2 (08:52→20:52)
[2017-02-03] MEDS: ENOXAPARIN 40 MG/0.4 ML SYR SUBQ SCH (09:02)
[2017-02-03 09:05] LABS: BASOPHILS # (AUTO) 0.3 K/uL (0.00-0.22); BASOPHILS % (AUTO) 2.2 % (0.0-2.0); EOSINOPHILS # (AUTO) 0.2 K/uL (0-0.4); EOSINOPHILS % (AUTO) 1.3 % (0.0-4.0); HEMATOCRIT 41.9 % (36-52); HEMOGLOBIN 13.9 g/dL (12.0-18.0); LYMPHOCYTES # (AUTO) 1.4 K/uL (2.0-11.5); LYMPHOCYTES % (AUTO) 9.9 % (20.5-51.1); MEAN CORPUSCULAR HEMOGLOBIN 29 pg (27-31); MEAN CORPUSCULAR HGB CONC 33 g/dL (33-37); MEAN CORPUSCULAR VOLUME 88 fL (80-94); MONOCYTES # (AUTO) 0.3 K/uL (0.8-1.0); MONOCYTES % (AUTO) 2.4 % (1.7-9.3); NEUTROPHILS # (AUTO) 11.9 K/uL (1.8-7.7); NEUTROPHILS % (AUTO) 84.2 % (42.2-75.2); PLATELET COUNT (AUTO) 163 K/uL (140-450); RED BLOOD CELL COUNT(AUTO) 4.79 MIL/uL (4.20-6.10); RED CELL DISTRIBUTION WIDTH 17.1 % (11.6-13.7); WHITE BLOOD COUNT (AUTO) 14.1 K/uL (4.8-10.8)
--- NOTE | 2017-02-03 09:17 | NUR ---
BIPAP CHECK, PT IS AWAKE WITH NO SIGNS OF DISTRESS NOTED AT THIS TIME
[2017-02-03 09:25] LABS: ALBUMIN 3.3 g/dL (3.4-5.0); CALCIUM 9.2 mg/dL (8.5-10.1); TOTAL BILIRUBIN 0.6 mg/dL (0.0-1.0); TOTAL PROTEIN, SERUM 6.4 g/dL (6.4-8.2)
[2017-02-03 09:30] LABS: ANION GAP 5.2 (8-16); CARBON DIOXIDE 39.8 mmol/L (21-32)
--- NOTE | 2017-02-03 10:16 | NUR ---
PT UP TO BEDSIDE COMMODE, PT REFUSES TO USE URINAL IN BED, PT RECONNECTED TO BIPAP, IV ANTIBIOTIC, PULSE OX, CALL HALL WITHIN REACH, ENCOURAGED TO CALL EARLY IF NEED TO GET UP.
--- NOTE | 2017-02-03 10:18 | NUR ---
SS NOTE: PER YEISON AT [facility] ([phone]), THEY ARE ABLE TO ACCEPT PT FOR PENITENTIARY CARE IF PT REQUIRES INITIAL SKILLED CARE I SPOKE WITH PT AND INFORMED HIM THAT [facility] MAY BE ABLE TO ACCEPT HIM, PT STATED THAT HE IS IN AGREEMENT WITH THAT. HE ALSO STATED THAT WE CAN CONTACT JENNY SANTIAGO, THE CELL TUBER HAND OF HIS [facility] REGARDING HIS MEDICAL EQUIPMENT. I SPOKE WITH JENNY AND HE STATED THAT HE WILL BRING PT'S RESPIRATORY EQUIPMENT TO [facility] THIS MORNING.
--- NOTE | 2017-02-03 10:56 | NUR ---
BIPAP CHECK BS DIMINISHED PT ASLEEP HHN GIVEN I\L WITH 2.5MG ALBUTEROL
--- NOTE | 2017-02-03 11:10 | NUR ---
FAXED CONCURRENT REVIEW TO [facility] [phone] PHONE CHET [phone]
[2017-02-03 12:00] VITALS: BP 134/77
--- NOTE | 2017-02-03 12:02 | NUR ---
SOLUMED GIVEN PER ORDER, IV SITE INTACT, PT REMAINS ON BIPAP AT 40%, UP TO BEDSIDE COMMODE WITHOUT PROBLEM, DENIES PAIN OR DISCOMFORT, CALL HALL WITHIN REACH, WILL CONTINUE TO MONITOR.
--- NOTE | 2017-02-03 12:35 | NUR ---
PT REMOVED BIPAP 5 L OXYMIZER PLACED SPO2 [id number]
--- NOTE | 2017-02-03 12:50 | NUR ---
PT CONSENTED FOR CT ANGIO CHEST WITH/WITHOUT CONTRAST
--- NOTE | 2017-02-03 15:00 | NUR ---
20G PIV TO R AC, PT READY FOR CT ANGIO CHEST, RADIOLOGY NOTIFIED, PT AWARE OF NPO STATUS, PT ON OXYMIZER AT 5L, ADAM WELL O2SAT 95%, CALL HALL WITHIN REACH, DENIES IMMEDIATE NEEDS, WILL CONTINUE TO MONITOR.
--- NOTE | 2017-02-03 15:31 | NUR ---
PT REFUSES BIPAP WILL WEAR AT NOCS ON 5 [address] POX IN PL[address]
[2017-02-03 16:00] VITALS: BP 132/66
--- NOTE | 2017-02-03 17:30 | NUR ---
SCHEDULED MED GIVEN, PT RESTING COMFORTABLY WITH OXYMIZER AT 5L, O2 SAT 95%, RESP EVEN UNLABORED, PT AWAITING CT SCAN, PT AWARE OF NPO STATUS, RADIOLOGY TO COME GET HIM SOON THEY CAN, CALL HALL WITHIN REACH, ALL SAFETY MEASURES IN PLACE, WILL CONTINUE TO MONITOR.
--- NOTE | 2017-02-03 18:40 | NUR ---
PER RADIOLOGY, OK TO FEED PT DINNER NOW, WILL DO CT ANGIO AT LATER TIME. DINNER PROVIDED TO PT. PT AWARE OF NPO AFTER DINNER UNTIL CT DONE.
--- NOTE | 2017-02-03 18:53 | NUR ---
RECEIVED PT ON 5 L/M OXYMIZER, BIPAP ON STANDBY AT BEDSIDE. PT'S SATURATION 94%, HR 95, RR 20. NO DISTRESS/SOB/WHEEZING NOTED. HHN TX GIVEN ORDERED. PT DOES NOT WANT BIPAP ON AT THIS TIME, WAITING TO GO TO CT SCAN. INFORMED PT'S RN, CLYDE THAT BIPAP WILL BE PLACED ON PT BEFORE BEDTIME. WILL CONTINUE TO MONITOR.
--- NOTE | 2017-02-03 19:21 | NUR ---
REPORT GIVEN TO CRIMPER OPERATOR, PT IN STABLE CONDITION.
--- NOTE | 2017-02-03 19:22 | NUR ---
RECEIVED REPORT FROM DAY SHIFT NURSE. PT IS AAOX4, ON TELE MONITOR, DENIES PAIN. ON OXYMIZER, HAS NO S/S OF RESPIRATORY DISTRESS/DISCOMFORT NOTED. IV SITE IS PATENT AND INTACT, SALINE LOCK. PLAN OF CARE DISCUSSED, VERBALIZED UNDERSTANDING. CALL LIGHT WITHIN REACH. WILL CONTINUE TO MONITOR.
[2017-02-03 20:00] VITALS: BP 122/75
--- NOTE | 2017-02-03 20:58 | NUR ---
DUE MEDICATION WAS GIVEN. PROVIDED HEALTH TEACHING, DRUG INFO , BENEFITS AND S/E, VERBALIZED UNDERSTANDING. PT TOLERATED WELL. PT REQUESTING FOOD AND REMINDED THAT HE IS NOTHING FOOD IN HIS STOMACH UNTIL THE PROCEDURE FOR CT ANGIO, VERBALIZED UNDERSTANDING.
[2017-02-04] VITALS (7 sets, daily range): BP systolic 131–159; BP diastolic 64–87
--- NOTE | 2017-02-04 | NUR ---
V/S CHECKED AND STABLE. ON BIPAP, HAS NO S/S OF RESPIRATORY DISTRESS/DISCOMFORT NOTED. CALL LIGHT WITHIN REACH.
[2017-02-04] MEDS: methylPREDNISolone SS 125 MG/2 ML VIAL IVP SCH ×4 (00:06→17:21)
--- NOTE | 2017-02-04 02:42 | NUR ---
EYES CLOSED, RESTING QUIETLY, BREATHING EVEN AND UNLABORED. CALL LIGHT WITHIN REACH.
[2017-02-04] MEDS: ALBUTEROL 0.083% 2.5 MG/3 ML NEBU INH SCH ×6 (03:45→23:32)
--- NOTE | 2017-02-04 04:00 | NUR ---
PT SLEEPING, EASILY AROUSABLE BY HIS NAME. V/S CHECKED AND STABLE. HAS NO COMPLAIN OF PAIN. HAS NO S/S OF RESPIRATORY DISTRESS/DISCOMFORT NOTED.
--- NOTE | 2017-02-04 05:00 | NUR ---
PT ACCIDENTALLY PULLED HIS IV TO THE RIGHT AC. NEW IV INSERTED TO THE LEFT AC # 20, SECURED WITH TAPE.
--- NOTE | 2017-02-04 06:29 | NUR ---
PT NOT IN UNIT FOR PROCEDURE OF CT ANGIOGRAM.
--- NOTE | 2017-02-04 06:56 | NUR ---
PT ARRIVED, HAS NO SIGNS OF DISTRESS AND STABLE,DENIES PAIN. CALL LIGHT WITHIN REACH, NEEDS ATTENDED. WILL ENDORSE TO DAY SHIFT NURSE.
--- NOTE | 2017-02-04 07:31 | NUR ---
RECEIVED PT SITTING ON BED. ALERT, ORIENTEDX 4. PT ON OXYMIZER AT 5LPM. NO SOB NOTED AT THIS TIME. PT DENIES ANY PAIN OR DISCOMFORT AT THIS TIME. POSITIVE BOWEL SOUNDS NOTED ON FOUR QUADRANTS. PT AMBULATORY. SAFTEY PRECAUTION IN PLACE. CALL LIGHT WITHIN REACH.
--- NOTE | 2017-02-04 08:39 | NUR ---
PT ENDORSED TO NURSE HELGA ON STABLE CONDITION.
[2017-02-04 08:41] LABS: MEAN CORPUSCULAR HEMOGLOBIN 29 pg (27-31); PLATELET COUNT (AUTO) 175 K/uL (140-450)
[2017-02-04] MEDS: FUROSEMIDE 40 MG/4 ML VIAL IVP SCH (09:07)
[2017-02-04] MEDS: HYDROcodone/APAP 5/325 MG 1 TAB TAB PO PRN ×3 (09:07→22:43)
[2017-02-04] MEDS: METOPROLOL 25 MG TAB PO SCH (09:08)
[2017-02-04] MEDS: DILTIAZEM 120 MG CAPER PO SCH (09:08)
[2017-02-04] MEDS: ATORVASTATIN 20 MG TAB PO SCH (09:08)
[2017-02-04] MEDS: LORazepam 0.5 MG TAB PO SCH ×2 (09:08→20:10)
[2017-02-04] MEDS: LEVOFLOXACIN 750 MG/D5W PREMIX 150 ML IV SCH (09:09)
[2017-02-04] MEDS: ENOXAPARIN 40 MG/0.4 ML SYR SUBQ SCH (09:28)
[2017-02-04 09:37] LABS: HEMATOCRIT 43.1 % (36-52); HEMOGLOBIN 14.1 g/dL (12.0-18.0); MEAN CORPUSCULAR HGB CONC 33 g/dL (33-37); MEAN CORPUSCULAR VOLUME 87 fL (80-94); RED BLOOD CELL COUNT(AUTO) 4.96 MIL/uL (4.20-6.10); RED CELL DISTRIBUTION WIDTH 17.4 % (11.6-13.7)
[2017-02-04 10:06] LABS: BAND % (MANUAL) 2 % (0-8); LYMPHOCYTES % (MANUAL) 13 % (20-46); MONOCYTES % (MANUAL) 4 % (5-12); NEUTROPHILS % (MANUAL) 81 (43-65); PLATELET ESTIMATE ADEQUATE
[2017-02-04 11:33] LABS: ALBUMIN 3.4 g/dL (3.4-5.0); ANION GAP 9.7 (8-16); CALCIUM 9.1 mg/dL (8.5-10.1); CARBON DIOXIDE 34.5 mmol/L (21-32); CREATININE 1.1 mg/dL (0.6-1.3); POTASSIUM 4.2 mmol/L (3.5-5.1); TOTAL BILIRUBIN 0.8 mg/dL (0.0-1.0); TOTAL PROTEIN, SERUM 6.4 g/dL (6.4-8.2)
--- NOTE | 2017-02-04 13:52 | NUR ---
CM NOTE CONCURRENT REVIEW SENT TO [facility] FAX# [phone] PH# FEBRUARY [phone]
--- NOTE | 2017-02-04 18:33 | NUR ---
left message to [facility] (answering service) for renewal of levofloxacin, she said Dr. Hagen on-call and she will page the doctor.
--- NOTE | 2017-02-04 19:22 | NUR ---
ENDORSED PLAN OF CARE TO YARD CLERK, RN.
--- NOTE | 2017-02-04 19:30 | NUR ---
RECEIVED REPORT FROM DAYSHIFT NURSE. PT RESTING IN BED, AOX4, ABLE TO VERBALIZE NEEDS. RT IN, PT REQUESTING TO BE PUT ON BIPAP. PT TOLERATING WELL, O2 SAT 96%. PT DENIES CP, SOB OR S/S OF ACUTE DISTRESS. IV ACCESS ASYMPTOMATIC, PATENT AND INTACT. IV SALINE LOCKED. DISCUSSED AND REVIEWED PLAN OF CARE WITH PT. PT VERBALIZES UNDERSTANDING. SAFETY MEASURES ENSURED. CALL LIGHT WITHIN REACH. WILL CONTINUE TO MONITOR.
--- NOTE | 2017-02-04 19:50 | NUR ---
PT SYDNEY COMPLAINED , AFTER 30 AMIRA I FIXED THE BIPAP ON HIS FACE, MED NEB IN LINE, I TURN MY BACK TO LEAVE AND HE TOOK EVERYTHING OUT TO EAT AND DRINK .HE SAID THAT NOT NOW.
--- NOTE | 2017-02-04 20:15 | NUR ---
SCHEDULED ATIVAN ADMINISTERED WITH EDUCATION. PT VERBALIZED UNDERSTANDING, TOLERATED MEDS WELL. ALL NEEDS MET. SAFETY MEASURES ENSURED.
[2017-02-04] MEDS: BLOOD GLUCOSE MONITORING 1 DEV DEV FS SCH (21:00)
[2017-02-04] MEDS ORDERED: DEXTROSE 50% 50 ML SYR IVP PRN (21:15)
--- NOTE | 2017-02-04 21:17 | NUR ---
PAGED DR DELGADO, SENIOR MECHANICAL PROJECT ENGINEER FOR DR CAREY. MADE AWARE OF HIGH BLOOD SUGAR AND NO HX OF DM. ORDERS RECEIVED FOR ACCUCHECKS ACHS AND LOW DOSE SLIDING SCALE INSULIN.
[2017-02-04] MEDS: INSULIN LISPRO SLIDING SCALE 100 UNITS/ML VIAL SUBQ PRN (22:41)
[2017-02-05] VITALS: BP 139/73
[2017-02-05] MEDS: methylPREDNISolone SS 125 MG/2 ML VIAL IVP SCH ×4 (00:40→17:13)
[2017-02-05] MEDS: ALBUTEROL 0.083% 2.5 MG/3 ML NEBU INH SCH ×4 (03:32→15:22)
--- NOTE | 2017-02-05 03:46 | NUR ---
PT WAS ASK TO BE TAKE HIM OFF OF BIPAP, .NO DISTRESS NOTED
[2017-02-05 04:00] VITALS: BP 124/67
--- NOTE | 2017-02-05 04:00 | NUR ---
PT SLEEPING. PT ON 5L OXIMIZER, O2 SAT 98%, NO SOB OR S/S OF ACUTE DISTRESS. CONDITION STABLE. SAFETY MEASURES ENSURED. CALL LIGHT WITHIN REACH. WILL CONTINUE TO MONITOR.
[2017-02-05] MEDS: BLOOD GLUCOSE MONITORING 1 DEV DEV FS SCH ×3 (06:41→15:43)
[2017-02-05] MEDS: INSULIN LISPRO SLIDING SCALE 100 UNITS/ML VIAL SUBQ PRN ×3 (06:42→15:44)
--- NOTE | 2017-02-05 07:38 | NUR ---
CONDITION STABLE. ENDORSED PLAN OF CARE TO DAYSHIFT NURSE.
--- NOTE | 2017-02-05 07:39 | NUR ---
PT AWAKE AND ALERT, NO SIGNS OF ACUTE DISTRESS. WITH O2 VIA OXYMIZER AT 5L/MIN, KEPT HOB ELEVATED AT LEAST 30 DEGREES. NO C/O SOB AT THIS TIME. SKIN IS WARM AND DRY. OFFLOAD TO PRESSURE AREAS. NO SIGNS OF ANY BOWEL/BLADDER DISCOMFORT. ABLE TO AMBULATE TO BSC WITH ASSIST. DENIES OF ANY PAIN AT THIS TIME. ALL NEEDS ATTENDED, SAFETY PRECAUTIONS MAINTAINED. CALL LIGHT WITHIN REACH.
[2017-02-05 08:00] VITALS: BP 137/91
[2017-02-05] MEDS: LORazepam 0.5 MG TAB PO SCH (08:16)
[2017-02-05] MEDS: FUROSEMIDE 40 MG/4 ML VIAL IVP SCH (08:16)
[2017-02-05] MEDS: DILTIAZEM 120 MG CAPER PO SCH (08:16)
[2017-02-05] MEDS: METOPROLOL 25 MG TAB PO SCH (08:16)
[2017-02-05] MEDS: ATORVASTATIN 20 MG TAB PO SCH (08:16)
[2017-02-05] MEDS: ENOXAPARIN 40 MG/0.4 ML SYR SUBQ SCH (08:17)
[2017-02-05] MEDS ORDERED: LEVOFLOXACIN 750 MG/D5W PREMIX 150 ML IV SCH (09:00)
[2017-02-05 09:11] LABS: HEMATOCRIT 44.4 % (36-52); HEMOGLOBIN 14.3 g/dL (12.0-18.0); MEAN CORPUSCULAR HEMOGLOBIN 28 pg (27-31); MEAN CORPUSCULAR HGB CONC 32 g/dL (33-37); MEAN CORPUSCULAR VOLUME 88 fL (80-94); PLATELET COUNT (AUTO) 173 K/uL (140-450); RED BLOOD CELL COUNT(AUTO) 5.04 MIL/uL (4.20-6.10); RED CELL DISTRIBUTION WIDTH 16.6 % (11.6-13.7); WHITE BLOOD COUNT (AUTO) 16.1 K/uL (4.8-10.8)
[2017-02-05 10:00] LABS: BAND % (MANUAL) 4 % (0-8); LYMPHOCYTES % (MANUAL) 12 % (20-46); MONOCYTES % (MANUAL) 8 % (5-12); NEUTROPHILS % (MANUAL) 76 (43-65)
[2017-02-05 10:04] LABS: ALBUMIN 3.4 g/dL (3.4-5.0); ANION GAP 8.2 (8-16); CALCIUM 8.8 mg/dL (8.5-10.1); CARBON DIOXIDE 40.4 mmol/L (21-32); POTASSIUM 3.6 mmol/L (3.5-5.1); TOTAL BILIRUBIN 0.8 mg/dL (0.0-1.0); TOTAL PROTEIN, SERUM 6.5 g/dL (6.4-8.2)
[2017-02-05] MEDS ORDERED: PRED10TA5 PO (11:29)
--- NOTE | 2017-02-05 11:40 | NUR ---
WAS SEEN BY Janet VIGIL. RECEIVED ORDER JANUARY D/C TO SNF. PT AWARE. NOTED AND CARRIED OUT. WILL CONTACT FOR F/U.
--- NOTE | 2017-02-05 11:42 | NUR ---
CM NOTE CONCURRENT REVIEW SENT TO [facility] FAX# [phone] PH# FEBRUARY [phone]
[2017-02-05 11:55] VITALS: BP 135/87
[2017-02-05] MEDS ORDERED: LEVO750T2 IV (12:01)
--- NOTE | 2017-02-05 12:17 | NUR ---
SS NOTE: PER [facility] AYUSH ROSENBERG, AUTH #[id number] FOR [facility] AND AUTH #[id number] FOR [facility] PER YEISON FROM [facility] ([phone]), PT CAN GO TO ROOM 207[address] UNDER DR. GRAHAM ANYTIME.
--- NOTE | 2017-02-05 13:14 | NUR ---
CM NOTE SPOKE WITH MIRTHA TO SET UP PATIENT TRANSPORT AUTH# [id number] GOING TO [facility] [address] GRAHAM, NUMBER TO CALL FOR REPORT PH# [phone], RESTAURANT MAINTENANCE TECHNICIAN TIME 1730. NURSE AWARE.
--- NOTE | 2017-02-05 13:32 | NUR ---
CALLED [facility] AND GIVEN REPORT TO XIOMY AUSTYN. NOTIFIED ESTIMATED PICKUP TIME FOR TRANSPORT IS AT 1730. PT ALSO IS AWARE.
[2017-02-05 16:00] VITALS: BP 117/69
--- NOTE | 2017-02-05 17:40 | NUR ---
WAS NOTIFIED BY [facility] THAT THEY WILL BE DELAYED FOR 60-90 MINUTES. PT AWARE. CONTINUE TO MONITOR.
--- NOTE | 2017-02-05 18:12 | NUR ---
PT ALERT AND RESPONSIVE, NO SIGNS OF ACUTE DISTRESS. WILL ENDORSE TO ONCOMING PROSTHETIST NURSE FOR CONTINUITY OF CARE.
--- NOTE | 2017-02-05 18:40 | NUR ---
PT AWAKE ALERT AND RESPONSIVE, NO SIGNS OF ACUTE DISTRESS. DENIES OF ANY PAIN. MAY D/C TO SNF ORDERED. EDUCATED ON CONTINUING PLAN OF CARE. PT VERBALIZED UNDERSTANDING. WRIST BANDS AND TELE LEADS REMOVED. IV KEPT ON HEPLOCK FOR CONTINUED IV ABX X 7 DAYS. PERSONAL BELONGINGS WITH PT UPON DISCHARGE. PICKED UP BY [facility] VIA GURNEY.
== END 2017-02-05 18:43 | DRG 133 ==
LOC: MED 06:40 → MTU 10:31
PROVIDERS: ADMIT Hospitalist; ATTEND Hospitalist
PROC: 5A09457 Assistance with Respiratory Ventilation, 24-96 Consecutive Hours, Continuous Positive Airway Pressure (ICD-10-PCS; principal; 2017-01-31)
DX: J96.20 Acute and chronic respiratory failure, unspecified whether with hypoxia or hypercapnia (principal); J18.9 Pneumonia, unspecified organism; I11.0 Hypertensive heart disease with heart failure; J44.0 Chronic obstructive pulmonary disease with (acute) lower respiratory infection; I50.32 Chronic diastolic (congestive) heart failure; E66.01 Morbid (severe) obesity due to excess calories; B19.20 Unspecified viral hepatitis C without hepatic coma; J44.1 Chronic obstructive pulmonary disease with (acute) exacerbation; G47.30 Sleep apnea, unspecified; Z68.38 Body mass index [BMI] 38.0-38.9, adult; Z87.891 Personal history of nicotine dependence; Z87.898 Personal history of other specified conditions; Z86.19 Personal history of other infectious and parasitic diseases
CPT/HCPCS: 36415; 36600; 71010; 71270; 71275; 80053; 80305; 82140; 82550; 82553; 82803; 82948; 83605; 83880; 84484; 85025; 85610; 85730; 87040; 87070; 87081; 87205; 93005; 94640; 94660; 96365; 96367; 96375; 99285; J0456; J0696; J1650; J1940; J1956; J2060; J2270; J2930; J7030; J7060; J7613; J7620; Q0092; Q9967